=== PATIENT | female | born 1955 | race Caucasian/White ===

== ENCOUNTER 2020-08-30 11:06 | Outpatient (CLI) | payer MEDICARE, SELFPAY ==
--- NOTE | 2020-08-30 11:14 | US_ITS ---
WS: [email or web address] RENAL ULTRASOUND HISTORY: POLYCYSTIC KIDNEY DZ/CKD STAGE III (MODERATE) COMPARISON: CT 12/14/2016 TECHNIQUE: 2-D and color Doppler imaging of the kidney submitted. Right kidney: 10.3 cm x 3.2 cm x 4.7 cm. Normal echogenicity with no hydronephrosis or mass. No evidence for polycystic kidney disease. Left kidney: 10.5 cm x 5.5 cm x 5.8 cm. Normal size kidney. Exophytic cyst from the inferior pole measures 5.4 x 4.4 x 3.8 cm. No solid compo nent. There is an additional parapelvic cyst in the lower pole measuring 2.1 x 2.4 x 1.6 cm. Aorta: Normal. Urinary Bladder: Normal distention. US/US renal BI* [id number] IMPRESSION: 1. Normal RIGHT kidney. 2. 2 simple cysts lower pole LEFT kidney.
== END 2020-08-30 11:07 | disposition home or self-care (01) ==
LOC: US 11:13
PROVIDERS: PCP Nurse Practitioner Family; Visit Provider Nurse Practitioner Family
DX: Q61.3 Polycystic kidney, unspecified (principal); N18.30 Chronic kidney disease, stage 3 unspecified
CPT/HCPCS: 76770

== ENCOUNTER → 2022-01-13 14:30 | Outpatient (BNVA) | payer MEDICARE, SELFPAY | PROVIDERS: PCP Nurse Practitioner Family; Visit Provider Emergency Medicine | DX: M79.672 Pain in left foot (principal); M19.072 Primary osteoarthritis, left ankle and foot | CPT/HCPCS: 73630 ==

== ENCOUNTER → 2022-05-08 12:23 | Outpatient (BNVA) | payer MEDICARE, SELFPAY | PROVIDERS: PCP Nurse Practitioner Family; Visit Provider Emergency Medicine | DX: M25.562 Pain in left knee (principal) | CPT/HCPCS: 73030; 73562 ==

== ENCOUNTER 2025-01-15 13:29 | Emergency (ER) | payer MEDICARE, SELFPAY ==
[2025-01-15 13:32] VITALS: BP 125/68; PULSE 78; RESP 16; TEMP 36.6; O2SAT 80; BMI 19.3
--- NOTE | 2025-01-15 13:37 | ECG_ITS ---
[email or web address] Date: 2025-01-15 Pat Name: Rahel Dorsey Department: Room: Gender: Female Comb Fixer: : 1955 Requested By: Les Egan Order Number: [id number] Joe MD: Vic Recinos M.D. Measurements Intervals Carrie Rate: 81 P: 58 DE: 134 QRS: 28 QRSD: 102 T: 82 QT: 395 QTc: 460 Interpretive Statements SINUS RHYTHM POSSIBLE LEFT ATRIAL ENLARGEMENT [-0.1mV P-WAVE IN V1/V2] MINIMAL ST DEPRESSION [0.025+ mV ST DEPRESSION] Compared to ECG 11/16/2015 15:45:01 No significant changes Electronically Signed On 01-24-2025 09:26:52 CDT by Vic Recinos M.D. [id number] [id number]
--- OUTSIDE RECORDS SUMMARY | 2025-01-15 13:41 | XMS_ITS | Encounter Summary ---
Author Organization [facility] Address [address] [place] [address] Care Team Providers Care Shoveler Name Role Phone Julio Gutierrez DO Primary Care Provider [phone] Encounter Details Date Type Department Care Team (Late st Contact Info) Description 04/24/2000 Outpatient Historical [facility] [place] Gen Spec Surg [address] [address] Dallas Noble MD [address] [place] [address] Incisional hernia (Primary Dx); Follow-up examination following surgery Social History Tobacco Use Types Packs/Day Years Used Date Smoking Tobacco: Never Assessed Comments Unknown Sex and Gender Information Value Date Recorded Sex Assigned at Not on file Legal Sex Female 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
--- OUTSIDE RECORDS SUMMARY | 2025-01-15 13:41 | XMS_ITS | Encounter Summary ---
Author Organization [facility] Address [address] [place] [address] Care Team Providers Care Tire Setter Name Role Phone Julio Gutierrez DO Primary Care Provider [phone] Encounter Details Date Type Department Care Team (Latest Contact Info) Description 12/23/2003 Outpatient Historical [facility] Orthopedics- 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
--- OUTSIDE RECORDS SUMMARY | 2025-01-15 13:41 | XMS_ITS | Encounter Summary ---
Author Organization [facility] Address [address] [facility] Attn: [place] [address] Care Team Providers Care Professional Bondsman Name Role Phone Julio Gutierrez Primary Care Provider [phone] Encounter Details Date Type Department Care Team (Late st Contact Info) Description 07/01/2007 Outpatient Historical [place], Juan Browning MD [address] [place], [place] [address] Social History Tobacco Use Types Packs/Day Years Used Date Smoking Tobacco: Never Assessed Comments Unknown Sex and Gender Information Value Date Recorded Sex Assigned at Not on file Legal Sex Female 3:22 AM FRONT DESK ASSISTANT Gender Identity Not on file Sexual Orientation Not on file documented as of this encounter Plan of Treatment Not on file documented as of this encounter Procedures Procedure Name Priority Date/Time Associated Diagnosis Comments HIV DETECTION W/REFLX CONFIRMATION Routine 06/28/2007 7:05 AM FRONT DESK ASSISTANT HEPATITIS B SURFACE ANTIGEN Routine 06/28/2007 7:05 AM FRONT DESK ASSISTANT HEPATITIS C ANTIBODY Routine 06/28/2007 7:05 AM FRONT DESK ASSISTANT documented in this encounter Results * HEPATITIS B SURFACE ANTIGEN (06/28/2007 7:05 AM FRONT DESK ASSISTANT) HEPATITIS B SURFACE AG Negative Negative INTERFACE SYSTEM 06/28/2007 7:05 AM FRONT DESK ASSISTANT Result [facility] Juan Valentino MD CHEMISTRY ORDERABLES Edited Performing Organization Address [facility] Phone Number INTERFACE SYSTEM Refer to clinic/hospital department * (ABNORMAL) HEPATITIS C ANTIBODY (06/28/2007 7:05 AM FRONT DESK ASSISTANT) HEPATITIS C AB High Positive( A) Negative INTERFACE SYSTEM Comment: HCV antibody testing is performed by E.I.A. methodology. CDC recommends positive HCV antibody tests have confirmation testing. Low positive results should be confirmed with RIBA. This will determine if results are false positive. If a high positive result is obtained an HCV RNA may be run. The RNA test confirms infection and the level of the RNA, to some extent, helps guide treatment. The same specimen can be used for RIBA and will be held for 7 days. Please contact the Immunology lab if RIBA testing is desired. However, if HCV RNA testing is desired, a new specimen must be collected. Blood should be collected in SST (serum) or EDTA (plasma) separation tubes. Separate serum or plasma from whole blood within 6 hours of collection. Serum or plasma can be transported at refrigerated temperature or frozen and transported. 06/28/2007 7:05 AM FRONT DESK ASSISTANT Result [facility] Juan Valentino MD CHEMISTRY ORDERABLES Edited Performing Organization Address [facility] Phone Number INTERFACE SYSTEM Refer to clinic/hospital department * HIV ANTIBODY W/REFLX CONFIRMATION (06/28/2007 7:05 AM FRONT DESK ASSISTANT) HIV-1 AND 2 ABS Negative Negative INTE RFACE SYSTEM Comment: Interpretation for HIV Results: Negative result: Negative for antibodies to HIV-1 and HIV-2 by EIA. Reactive result: Repeatedly Reactive for antibodies to HIV-1 and/or HIV-2 by EIA. Due to possible non-specific reactions from other causes, this specimen has been sent for confirmation by Western Blot. 06/28/2007 7:05 AM FRONT DESK ASSISTANT Result [facility] Juan Valentino MD CHEMISTRY ORDERABLES Edited INTERFACE SYSTEM Refer to clinic/hospital department documented in this encounter Visit Diagnoses Not on filedocumented in this encounter Care Teams Professional Bondsman Relationship Specialty Start Date End Date Julio Gutierrez DO [address] [place] [address] PCP - General Whipped Topping Finisher 02/09/11 documented as of this encounter
--- OUTSIDE RECORDS SUMMARY | 2025-01-15 13:41 | XMS_ITS | Encounter Summary ---
Author Organization [facility] Address [address] [place] [address] Care Team Providers Care Convex Grinder Name Role Phone Julio Gutierrez DO Primary Care Provider [phone] Encounter Details Date Type Department Care Team (Latest Contact Info) Description 08/27/2003 Outpatient Historical [facility] Cardiology- [place] [address] [place] [address] Marianna Rios, METAL BALER NO ADDRESS ON FILE ANGINA PECTORIS NEC/NOS (Primary Dx); CORON ATHEROSCL [place] CORON VESSEL; Pure hypercholesterolem Social History Tobacco Use Types Packs/Day Years Used Date Smoking Tobacco: Never Assessed Comments Unknown Sex and Gender Information Value Date Recorded Sex Assigned at Not on file Legal Sex Female 3:22 AM 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
--- OUTSIDE RECORDS SUMMARY | 2025-01-15 13:41 | XMS_ITS | Encounter Summary ---
Author Organization [facility] Address [address] [place] [address] Care Team Providers Care Electronics Engineer Name Role Phone Matthew Barr MD Primary Care Provider Reason for Referral * Radiology Services (Routine) - Authorized Specialty Diagnoses / Procedures Referred By Contac t Referred To Contact Diagnoses Bilateral carotid artery stenosis Procedures US CAROTID DOPPLER Baldomero Mckinney NP [address] [address] Phone: tel: fax: Referral ID Status Reason Start Date Expiration Date V isits Requested Visits Authorized [id number] Authorized 01/12/2025 02/12/2026 1 1 Encounter Details Date Type Department Care Team (Late st Contact Info) Description 01/12/2025 Orders Only [facility] Vascular Surgery [place] [address] [place] [address] Baldomero Mckinney NP [address] [place] [address] Bilateral carotid artery stenosis (Primary Dx) Social History Tobacco Use Types Packs/Day Years Used Date Smoking Tobacco: Every Day Cigarettes 1.5 49 Smokeless Tobacco: Never Alcohol Use Standard Drinks/Week Comments No 0 (1 standard drink = 0.6 oz pur e alcohol) Comments Unknown Sex and Gender Information Value Date Recorded Sex Assigned at Not on file Legal Sex Female 3:57 PM CLASS B TRUCK DRIVER Gender Identity Not on file Sexual Orientation Not on file documented as of this encounter Plan of Treatment Upcoming Encounters Date Type Department Care Team (Late st Contact Info) Description 03/04/2025 12:00 PM CDT Ancillary Procedure [facility] V[facility]- [place] [address] [place] [address] Baldomero Mckinney NP [address] [place] [address] 03/04/2025 1:00 PM CDT Office Visit [facility] Vascular Surgery [address] [place] [address] Baldomero Mckinney NP [address] [place] [address] Scheduled Orders Name Type Priority Associated Diagnoses Orde r Schedule US CAROTID DOPPLER Imaging Routine Bilateral carotid artery stenosis Expected: 01/19/2025 (Approximate), Expires: 03/14/2026 documented as of this encounter Visit Diagnoses Diagnosis Bilateral carotid artery stenosis- Primary Occlusion and stenosis of multiple and bilateral precerebral arteries without mention of cerebral infarction documented in this encounter Care Teams Electronics Engineer Relationship Specialty Start Date End Date Matthew Barr MD [address] [place] [phone] PCP - General Family Practice 10/19/21 documented as of this encounter
--- OUTSIDE RECORDS SUMMARY | 2025-01-15 13:41 | XMS_ITS | Encounter Summary ---
Author Organization [facility] Address [address] [place] [address] Care Team Providers Care Onion Topper Name Role Phone Julio Gutierrez DO Primary Care Provider [phone] Encounter Details Date Type Department Care Team (Late st Contact Info) Description 09/07/2005 Emergency [facility] Emergency Department [address] [place] [phone] Dallas Fuller MD NO ADDRESS ON FILE Pain in Soft Tissues of Limb (Primary Dx) Social History Tobacco Use Types Packs/Day Years Used Date Smoking Tobacco: Never Assessed Comments Unknown Sex and Gender Information Value Date Recorded Sex Assigned at Not on file Legal Sex Female 3:22 AM FAST FOOD SHIFT 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
--- OUTSIDE RECORDS SUMMARY | 2025-01-15 13:41 | XMS_ITS | Encounter Summary ---
Author Organization [facility] Address [address] [place] [address] Care Team Providers Care Tool Honing Machine Set Up Operator Name Role Phone Julio Gutierrez Primary Care Provider Encounter Details Date Type Department Care Team (Late st Contact Info) Description 12/15/2016 Lab Requisition [facility] Laboratory Services [address] [place] [phone] Hans Castanon MD NO ADDRESS ON FILE Social History Tobacco Use Types Packs/Day Years Used Date Smoking Tobacco: Every Day Cigarettes 1 25 Alcohol Use Standard Drinks/Week Comments No 0 (1 standard drink = 0.6 oz pur e alcohol) Comments No Sex and Gender Information Value Date Recorded Sex Assigned at Not on file Legal Sex Female 3:22 AM LEAD SOFTWARE DEVELOPER Gender Identity Not on file Sexual Orientation Not on file documented as of this encounter Plan of Treatment Not on file documented as of this encounter Procedures Procedure Name Priority Date/Time Associated Diagnosis Comments HIV DETECTION W/REFLX CONFIRMATION Routine 12/15/2016 1:51 AM CDT HEPATITIS C RNA PCR, QUANTITATIVE Routine 12/15/2016 1:51 AM CDT HEPATITIS B SURFACE ANTIGEN Routine 12/15/2016 1:51 AM CDT HEPATITIS C ANTIBODY Routine 12/15/2016 1:51 AM CDT documented in this encounter Results * HEPATITIS C RNA PCR, QUANTITATIVE (12/15/2016 1:51 AM CDT) [facility] HEPATITIS C RNA PCR NOT DETECTED Not detected 12/18/2016 12:42 PM CDT [facility] Blood Collection / Unknown 12/15/2016 1:51 AM CDT 12/15/2016 2:46 AM CDT Narrative [facility] - 12/18/2016 12:42 PM CDT The quantification range of this assay is 15 to 100,000,000 IU/mL (1.18 to 8.00 log IU/mL). Testing was performed by the Kaitlynn Marquise [employer]/Marquise Taqman HCV Test, v. 2.0 using Reverse Egg Separator - Polymerase Chain Reaction (RT-PCR). Hans Castanon MD CHEMISTRY ORDERABLES Final Res ult Performing Organization Address [facility] Co de Phone Number [facility] CLIA# [id number] [address] [place] [address] * HEPATITIS B SURFACE ANTIGEN (12/15/2016 1:51 AM CDT) [facility] HEPATITIS B SURFACE AG NON-REACTI VE Non-react ezequiel 12/15/2016 4:10 AM CDT [facility] Blood Collection / Unknown 12/15/2016 1:51 AM CDT 12/15/2016 2:46 AM CDT Hans Castanon MD CHEMISTRY ORDERABLES Final Res ult Performing Organization Address [facility] Co de Phone Number [facility] CLIA# [id number] [address] [place] [address] * (ABNORMAL) HEPATITIS C ANTIBODY (12/15/2016 1:51 AM CDT) [facility] HEPATITIS C AB REACTIVE( A) Non-react ezequiel 12/15/2016 4:10 AM CDT [facility] Comment:Reactive and equivoc al results will have confirmatory testing performed by HCV-RNA by PCR Blood Collection / Unknown 12/15/2016 1:51 AM CDT 12/15/2016 2:46 AM CDT Hans Castanon MD CHEMISTRY ORDERABLES Final Res ult Performing Organization Address City/[facility]/ZIP Co de Phone Number [facility] CLIA# [id number] [address] [place] [address] * HIV DETECTION W/REFLX CONFIRMATION (12/15/2016 1:51 AM CDT) HIV-1 AND 2 ABS AND HIV-1 AG Non-reacti ve Non-React ezequiel 12/15/2016 4:10 AM CDT [facility] Blood Collection / Unknown 12/15/2016 1:51 AM CDT 12/15/2016 2:46 AM CDT Hans Castanon MD CHEMISTRY ORDERABLES Final Res ult Performing Organization Address [facility] Co de Phone Number [facility] CLIA# [id number] [address] [place] [address] documented in this encounter Visit Diagnoses Not on filedocumented in this encounter Care Teams Tool Honing Machine Set Up Operator Relationship Specialty Start Date End Date Julio Gutierrez DO [address] [place] [address] PCP - General Supervisor Personnel Clerks 02/09/11 documented as of this encounter
--- OUTSIDE RECORDS SUMMARY | 2025-01-15 13:41 | XMS_ITS | Encounter Summary ---
Author Organization [facility] Address [address] [place] [address] Care Team Providers Care Manager Pediatric Name Role Phone Julio Gutierrez DO Primary Care Provider [phone] Encounter Details Date Type Department Care Team (Latest Contact Info) Description 12/14/2005 Outpatient Historical [facility] Cardiology- [place] [address] [place] [phone] Marianna Rios, CLIENT TECHNICAL SPECIALIST NO ADDRESS ON FILE Cor Athrscl-Uns Vessel (Primary Dx); Benign Hypertension; Pure Hypercholesterolem Social History Tobacco Use Types Packs/Day Years Used Date Smoking Tobacco: Never Assessed Comments Unknown Sex and Gender Information Value Date Recorded Sex Assigned at Not on file Legal Sex Female 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 Gender Identity Not on file Sexual Orientation Not on file documented as of this encounter Plan of Treatment Not on file documented as of this encounter Visit Diagnoses Diagnosis Coronary atherosclerosis of unspecified type of vessel, [place] or graft- Primary Benign hypertension Essential hypertension, benign Pure hypercholesterolem Pure hypercholesterolemia documented in this encounter Care Teams Manager Pediatric Relationship Specialty Start Date End Date Julio Gutierrez DO [address] [place] [address] PCP - General Compensation And Benefits Advisor 02/09/11 documented as of this encounter
--- OUTSIDE RECORDS SUMMARY | 2025-01-15 13:41 | XMS_ITS | Encounter Summary ---
Author Organization [facility] Address [address] [place] [address] Care Team Providers Care Team Assembly Line Machine Operator Name Role Phone Julio Gutierrez DO Primary Care Provider [phone] Encounter Details Date Type Department Care Team (Late st Contact Info) Description 08/01/2007 Outpatient Historical [facility] Cardiac Thoracic Vascular Surg [place] [address] [place] [address] Juan Cox MD NO ADDRESS ON FILE Social History Tobacco Use Types Packs/Day Years Used Date Smoking Tobacco: Never Assessed Comments Unknown Sex and Gender Information Value Date Recorded Sex Assigned at Not on file Legal Sex Female 3: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 Cardiology [address] [place] [address] RE: Rahel Dorsey : [address] Lorenz: We had the pleasure of seeing Ms. Rahel Dorsey following her five vessel coronary artery bypasssurgery on 06/24/07. We used reverse saphenous vein graft to the right coronary artery, reverse saphenous vein graft to the diagonal, reverse saphenous vein graft to the circumflex x2, left internal mammary to the left anterior descending. The patient tolerated the procedure well and was subsequently discharged in satisfactory condition. She presented to our office today with the following findings: Blood pressure 132/80, pulse 72 and regular, respirations were 16. Her breath sounds were clear bilaterally in all holly. Wounds are healing well. She has one small area on the lower aspect of her sternal wound that has a little scab on it. However, it is doing fine. She just keeps it covered due to rubbing of her brassiere on the wound. She does complain about her leg wound being sensitive and feels burning on a number of occasions and she does complain of being quite tired often. She is continuing to smoke. We had a long conversation about that. I did give her permission to resume driving and to increase her level of activityover the next six weeks towards normal. She does complain about quite a bit of stress in her life with her children and grandchildren. She is continuing to take aspirin 325 mg daily, metoprolol 25 mg b.i.d., enalapril 20 mg daily, Lexapro 10 mg daily and Lipitor 10 mg daily. We would like to thank you for allowing us to share in the care of this very kind lady. If we can be of any further assistance, please do not hesitate to call. She has an appointment to see you in approximately 3 weeks. Sincerely, Derek Silveira. For Juan Cox M.D. Cardiovascular & Thoracic Surgery Electronically Signed by Shannen Silveira 08/08/2007 09:36 , A, 570 Document #: [id number] cc: Y HUSBANDRY TEACHER Y HUSBANDRY TEACHER documented in this encounter Plan of Treatment Not on file documented as of this encounter Visit Diagnoses Not on filedocumented in this encounter Care Teams Team Assembly Line Machine Operator Relationship Specialty Start Date End Date Julio Gutierrez DO [address] [place] [address] PCP - General Senior Technical Support Engineer 02/09/11 documented as of this encounter
--- OUTSIDE RECORDS SUMMARY | 2025-01-15 13:41 | XMS_ITS | Encounter Summary ---
Author Organization [facility] Address [address] [place] [address] Care Team Providers Care Nutrition Instructor Name Role Phone Julio Gutierrez DO Primary Care Provider [phone] Encounter Details Date Type Department Care Team (Latest Contact Info) Description 10/30/2003 Outpatient Historical [facility] Ambulance [address] [place] [address] AMBULANCE, [facility] LOWER LEG INJURY NOS (Primary Dx) Social History Tobacco Use Types Packs/Day Years Used Date Smoking Tobacco: Never Assessed Comments Unknown Sex and Gender Information Value Date Recorded Sex Assigned at Not on file Legal Sex Female 3:22 AM HEAT ENGINEERING TEACHER Gender Identity Not on file Sexual Orientation Not on file documented as of this encounter Plan of Treatment Not on file documented as of this encounter Visit Diagnoses Diagnosis Injury, other and unspecified, knee, leg, ankle, and foot- Primary documented in this encounter Care Teams Nutrition Instructor Relationship Specialty Start Date End Date Julio Gutierrez DO [address] [place] [address] PCP - General Music Industry Intern 02/09/11 documented as of this encounter
--- OUTSIDE RECORDS SUMMARY | 2025-01-15 13:41 | XMS_ITS | Encounter Summary ---
Author Organization [facility] Address [address] [place] [address] Care Team Providers Care Steward/Stewardess Lounge Name Role Phone Julio Gutierrez Primary Care Provider [phone] Encounter Details Date Type Department Care Team (Latest Contact Info) Description 09/26/2004 Outpatient Historical [facility] Cardiac Historiography Teacher [address] [place] [phone] Renard Lorenz MD NO ADDRESS ON FILE CORON ATHEROSCL [place] CORON VESSEL (Primary Dx) Social History Tobacco Use Types Packs/Day Years Used Date Smoking Tobacco: Never Assessed Comments Unknown Sex and Gender Information Value Date Recorded Sex Assigned at Not on file Legal Sex Female 3:22 AM HISTOLOGY TECHNOLOGIST Gender Identity Not on file Sexual Orientation Not on file documented as of this encounter Plan of Treatment Not on file documented as of this encounter Procedures Procedure Name Priority Date/Time Associated Diagnosis Comments PT AND APTT Routine 09/26/2004 7:12 AM CDT CBC WITHOUT DIFFERENTIAL Routine 09/26/2004 7:12 AM CDT C-REACTIVE PROTEIN Routine 09/26/2004 7: 12 AM CDT BASIC METABOLIC PANEL Routine 09/26/2004 7:12 AM CDT documented in this encounter Results * PT AND APTT (09/26/2004 7:12 AM CDT) PROTIME 14.2 12.4 - 14.9 Secs INTERFACE SYSTEM Comment: As of 03 note change in normal range. INR 1.0 INTERFACE SYSTEM Comment: Expected Values for INR: DVT/PE Goal INR 2.5; range 2.0 - 3.0 Valve Replacement Tissue Goal INR 2.5; range 2.0 - 3.0 Mechanical Goal INR 3.0; range 2.5 - 3.5 POST-OR Goal INR 2.5; range 2.0 - 3.0 or Goal 3.0; range 2.5 - 3.5 Atrial Fibrillation Goal INR 2.5; range 2.0 - 3.0 Ischemic Stroke Goal INR 2.5; range 2.0 - 3.0 For additional information see Guidelines for Anticoagulation available from the pharmacy [facility] [place] PTT 33.2 24.3 - 37.5 Secs INTERFACE SYSTEM Comment:Therapeutic Range: 09/26/2004 7:12 AM CDT us Renard Lorenz MD HEMATOLOGY ORDERABLES Final Result INTERFACE SYSTEM Refer to clinic/hospital department * (ABNORMAL) CBC WITHOUT DIFFERENTIAL (09/26/2004 7:12 AM CDT) WBC 7.5 4.5 - 11.0 K/ul INTERFACE SYSTEM RBC 4.62 4.20 - 5.40 Mil/ul INTERFACE SYSTEM HEMOGLOBIN 14.8 12.0 - 16.0 g/dL INTERFACE SYSTEM HEMATOCRIT 44.6 36.0 - 46.0 % INTERFACE SYSTEM MCV 96.5 84.0 - 103.0 Fl INTERFACE SYSTEM MCH 32.0 27.0 - 34.0 pg INTERFACE SYSTEM MCHC 33.2 30.0 - 35.0 g/dL INTERFACE SYSTEM RDW 13.0 11.0 - 14.5 percent(in active) INTERFACE SYSTEM PLATELETS 486(H) 140 - 440 K/ul INTERFACE SYSTEM MPV 9.2 8.9 - 12.8 Fl INTERFACE SYSTEM NEUTROPHILS 55.5 42.2 - 75.2 percent(in active) INTERFACE SYSTEM LYMPHOCYTES 34.5 24.0 - 44.0 percent(in active) INTERFACE SYSTEM MONOCYTES 8.0 2.0 - 10.0 percent(in active) INTERFACE SYSTEM EOSINOPHILS 1.7 0.0 - 7.0 % INTERFACE SYSTEM BASOPHILS 0.3 0.0 - 1.0 percent(in active) INTERFACE SYSTEM NEUTROPHIL ABSOLUTE 4.1 2.0 - 8.0 K/uL INTERFACE SYSTEM LYMPHOCYTE ABSOLUTE 2.6 1.2 - 4.0 K/ul INTERFACE SYSTEM MONOCYTE ABSOLUTE 0.6 0.1 - 0.6 K/ul INTERFACE SYSTEM EOSINOPHIL ABSOLUTE 0.1 0.0 - 0.7 K/ul INTERFACE SYSTEM BASOPHILS ABSOLUTE 0.0 0.0 - 0.2 K/ul INTERFACE SYSTEM 09/26/2004 7:12 AM CDT Renard Lorenz MD HEMATOLOGY ORDERABLES Final Result Performing Organization Address [facility] de Phone Number INTERFACE SYSTEM Refer to clinic/hospital department * (ABNORMAL) C-REACTIVE PROTEIN (09/26/2004 7:12 AM CDT) CRP 1.9(H) 0.0 - 1.0 mg/dL INTERFACE SYSTEM Comment: This is a standard CRP method, and is not intended as a marker for Heart Disease This test cannot be used to assess cardiac risk. As of 01/25/2004, the linearity on CRP has been changed to 0.3-11.0 mg/dl. The past range was 0.7-11.0 mg/dl. 09/26/2004 7:12 AM CDT Renard Lorenz MD CHEMISTRY ORDERABLES Final Result Performing Organization Address [facility] Co de Phone Number INTERFACE SYSTEM Refer to clinic/hospital department * (ABNORMAL) BASIC METABOLIC PANEL (09/26/2004 7:12 AM CDT) GLUCOSE 115(H) 70 - 110 mg/dL INTERFACE SYSTEM BUN 8 7 - 17 mg/dL INTERFACE SYSTEM CREATININE 1.0 0.7 - 1.2 mg/dL INTERFACE SYSTEM SODIUM 140 136 - 145 mEq/L INTERFACE SYSTEM POTASSIUM 4.1 3.5 - 5.0 mEq/L INTERFACE SYSTEM CHLORIDE 103 95 - 110 mEq/L INTERFACE SYSTEM CO2 28 22 - 32 mmol/l INTERFACE SYSTEM ANION GAP 13 9 - 20 mEq/L INTERFACE SYSTEM OSMOLALITY, CALCULATED 287 275 - 295 mOsm/Kg INTERFACE SYSTEM CALCIUM 9.1 8.4 - 10.5 mg/dL INTERFACE SYSTEM 09/26/2004 7:12 AM CDT us Renard Lorenz MD CHEMISTRY ORDERABLES Final Result INTERFACE SYSTEM Refer to clinic/hospital department documented in this encounter Visit Diagnoses Diagnosis Coronary atherosclerosis of [place] coronary artery- Primary documented in this encounter Care Teams Steward/Stewardess Lounge Relationship Specialty Start Date End Date Julio Gutierrez DO [address] [place] [address] PCP - General Hydrogeology Professor 02/09/11 documented as of this encounter
--- OUTSIDE RECORDS SUMMARY | 2025-01-15 13:41 | XMS_ITS | Encounter Summary ---
Author Organization [facility] Address [address] [place] [address] Care Team Providers Care Air Traffic Control Equipment Repairer Name Role Phone Julio Gutierrez DO Primary Care Provider [phone] Encounter Details Date Type Department Care Team (Latest Contact Info) Description 12/03/2002 Outpatient Historical [facility] Dom Shah, MARÍA NO ADDRESS ON FILE Hallux valgus (Primary Dx); AFCARE FOL SURG OF MUSCULOSK SYS, NEC Social History Tobacco Use Types Packs/Day Years Used Date Smoking Tobacco: Never Assessed Comments Unknown Sex and Gender Information Value Date Recorded Sex Assigned at Not on file Legal Sex Female 3:22 AM TRENCH DIGGER Gender Identity Not on file Sexual Orientation Not on file documented as of this encounter Plan of Treatment Not on file documented as of this encounter Visit Diagnoses Diagnosis Hallux valgus- Primary Hallux valgus (acquired) Aftercare following surgery of the musculoskeletal system, NEC documented in this encounter Care Teams Air Traffic Control Equipment Repairer Relationship Specialty Start Date End Date Julio Gutierrez DO [address] [place] [address] PCP - General It Program Engagement Director 02/09/11 documented as of this encounter
--- OUTSIDE RECORDS SUMMARY | 2025-01-15 13:41 | XMS_ITS | Encounter Summary ---
Author Organization [facility] Address [address] [place] [address] Care Team Providers Care Music Pastor Name Role Phone Julio Gutierrez DO Primary Care Provider [phone] Encounter Details Date Type Department Care Team (Latest Contact Info) Description 11/28/2002 Outpatient Historical [facility] Dom Shah, MARÍA NO ADDRESS ON FILE Hallux valgus (Primary Dx); AFCARE FOL SURG OF MUSCULOSK SYS, NEC Social History Tobacco Use Types Packs/Day Years Used Date Smoking Tobacco: Never Assessed Comments Unknown Sex and Gender Information Value Date Recorded Sex Assigned at Not on file Legal Sex Female 3:22 AM CRIMINAL PROFILER Gender Identity Not on file Sexual Orientation Not on file documented as of this encounter Plan of Treatment Not on file documented as of this encounter Visit Diagnoses Diagnosis Hallux valgus- Primary Hallux valgus (acquired) Aftercare following surgery of the musculoskeletal system, NEC documented in this encounter Care Teams Music Pastor Relationship Specialty Start Date End Date Julio Gutierrez DO [address] [place] [address] PCP - General Director Of Transportation 02/09/11 documented as of this encounter
--- OUTSIDE RECORDS SUMMARY | 2025-01-15 13:41 | XMS_ITS | Encounter Summary ---
Author Organization [facility] Address [address] [place] [address] Care Team Providers Care Services Mgr Name Role Phone Julio Gutierrez DO Primary Care Provider [phone] Encounter Details Date Type Department Care Team (Latest Contact Info) Description 02/14/2007 Outpatient Historical [facility] Cardiology- [place] [address] [place] [phone] [place] Rios, CDL DEDICATED TRUCK DRIVER NO ADDRESS ON FILE Cor Athrscl-Uns Vessel (Primary Dx); Benign Hypertension; Pure Hypercholesterolem Social History Tobacco Use Types Packs/Day Years Used Date Smoking Tobacco: Never Assessed Comments Unknown Sex and Gender Information Value Date Recorded Sex Assigned at Not on file Legal Sex Female 3:22 AM ACCOUNTING MANAGER ASSISTANT CONTROLLER Gender Identity Not on file Sexual Orientation Not on file documented as of this encounter Plan of Treatment Not on file documented as of this encounter Visit Diagnoses Diagnosis Coronary atherosclerosis of unspecified type of vessel, burns paiute or graft- Primary Benign hypertension Essential hypertension, benign Pure hypercholesterolem Pure hypercholesterolemia documented in this encounter Care Teams Services Mgr Relationship Specialty Start Date End Date Julio Gutierrez DO [address] [place] [address] PCP - General Hot Blaster 02/09/11 documented as of this encounter
--- OUTSIDE RECORDS SUMMARY | 2025-01-15 13:41 | XMS_ITS | Encounter Summary ---
Author Organization [facility] Address [address] [place] [address] Care Team Providers Care Wide Area Network Systems Administrator Name Role Phone Julio Gutierrez DO Primary Care Provider [phone] Encounter Details Date Type Department Care Team (Latest Contact Info) Description 10/30/2003 Inpatient Historical [facility] Emergency Department [address] [place] [phone] Kian Marie MD [address] [place] [address] FX BIMALLEOLAR-CLOSED (Primary Dx) Social History Tobacco Use Types Packs/Day Years Used Date Smoking Tobacco: Never Assessed Comments Unknown Sex and Gender Information Value Date Recorded Sex Assigned at Not on file Legal Sex Female 3:22 AM FELT HAT INSPECTOR AND PACKER Gender Identity Not on file Sexual Orientation Not on file documented as of this encounter Plan of Treatment Not on file documented as of this encounter Visit Diagnoses Diagnosis Closed bimalleolar fracture- Primary documented in this encounter Care Teams Wide Area Network Systems Administrator Relationship Specialty Start Date End Date Julio Gutierrez DO [address] [place] [address] PCP - General Food And Nutrition Services Supervisor 02/09/11 documented as of this encounter
--- OUTSIDE RECORDS SUMMARY | 2025-01-15 13:41 | XMS_ITS | Encounter Summary ---
Author Organization [facility] Address [address] [place] [address] Care Team Providers Care Chief Radiology Name Role Phone Julio Gutierrez DO Primary Care Provider [phone] Encounter Details Date Type Department Care Team (Late st Contact Info) Description 05/01/2000 Outpatient Historical [facility] Gen Spec Surg [address] [address] Dallas Noble MD [address] [place] [phone] Incisional hernia (Primary Dx); Follow-up examination following surgery Social History Tobacco Use Types Packs/Day Years Used Date Smoking Tobacco: Never Assessed Comments Unknown Sex and Gender Information Value Date Recorded Sex Assigned at Not on file Legal Sex Female 3:22 AM RECTIFIER OPERATOR Gender Identity Not on file Sexual Orientation Not on file documented as of this encounter Plan of Treatment Not on file documented as of this encounter Visit Diagnoses Diagnosis Incisional hernia- Primary Incisional hernia without mention of obstruction or gangrene Follow-up examination following surgery documented in this encounter Care Teams Chief Radiology Relationship Specialty Start Date End Date Julio Gutierrez DO [address] [place] [address] PCP - General Dirt Shoveler 02/09/11 documented as of this encounter
--- OUTSIDE RECORDS SUMMARY | 2025-01-15 13:41 | XMS_ITS | Encounter Summary ---
Author Organization [facility] Address [address] [place] [address] Care Team Providers Care Librarian School Name Role Phone Julio Gutierrez DO Primary Care Provider [phone] Encounter Details Date Type Department Care Team (Latest Contact Info) Description 01/09/2003 Outpatient Historical [facility] Dom Shah DPM NO ADDRESS ON FILE Hallux valgus (Primary Dx); ACQ ANKLE-FOOT DEF NEC Social History Tobacco Use Types Packs/Day Years Used Date Smoking Tobacco: Never Assessed Comments Unknown Sex and Gender Information Value Date Recorded Sex Assigned at Not on file Legal Sex Female 3:22 AM LEAD PRESSMAN Gender Identity Not on file Sexual Orientation Not on file documented as of this encounter Plan of Treatment Not on file documented as of this encounter Visit Diagnoses Diagnosis Hallux valgus- Primary Hallux valgus (acquired) Other acquired deformity of ankle and foot(736.79) Other acquired deformity of ankle and foot documented in this encounter Care Teams Librarian School Relationship Specialty Start Date End Date Julio Gutierrez DO [address] [place] [address] PCP - General Production Engineer Track 02/09/11 documented as of this encounter
--- OUTSIDE RECORDS SUMMARY | 2025-01-15 13:41 | XMS_ITS | Encounter Summary ---
Author Organization [facility] Address [address] Cervantes: Epic [place] [address] Care Team Providers Care Abstractor Name Role Phone Julio Gutierrez DO Primary Care Provider [phone] Encounter Details Date Type Department Care Team (Late st Contact Info) Description 03/17/2002 Outpatient Historical [facility], [facility] [address] [address] Social History Tobacco Use Types Packs/Day Years Used Date Smoking Tobacco: Never Assessed Comments Unknown Sex and Gender Information Value Date Recorded Sex Assigned at Not on file Legal Sex Female 3:22 AM ROLLER TURNER Gender Identity Not on file Sexual Orientation Not on file documented as of this encounter Plan of Treatment Not on file documented as of this encounter Visit Diagnoses Not on filedocumented in this encounter Care Teams Abstractor Relationship Specialty Start Date End Date Julio Gutierrez DO [address] [place] [address] PCP - General [address] In Teller 02/09/11 documented as of this encounter
--- OUTSIDE RECORDS SUMMARY | 2025-01-15 13:41 | XMS_ITS | Encounter Summary ---
Author Organization [facility] Address [address] [place] [address] Care Team Providers Care Development Team Lead Name Role Phone Julio Gutierrez DO Primary Care Provider Encounter Details Date Type Department Care Team (Latest Contact Info) Description 12/29/2002 Inpatient Historical [facility] Cardiac Belt Loop Maker [address] [place] [phone] Renard Lorenz MD NO ADDRESS ON FILE CORON ATHEROSCL [place] CORON VESSEL (Primary Dx) Social History Tobacco Use Types Packs/Day Years Used Date Smoking Tobacco: Never Assessed Comments Unknown Sex and Gender Information Value Date Recorded Sex Assigned at Not on file Legal Sex Female 3:22 AM MANAGER OF TIRES SALES Gender Identity Not on file Sexual Orientation Not on file documented as of this encounter Plan of Treatment Not on file documented as of this encounter Visit Diagnoses Diagnosis Coronary atherosclerosis of [place] coronary artery- Primary documented in this encounter Care Teams Development Team Lead Relationship Specialty Start Date End Date Julio Gutierrez DO [address] [place] [address] PCP - General Molding Cutter 02/09/11 documented as of this encounter
--- OUTSIDE RECORDS SUMMARY | 2025-01-15 13:41 | XMS_ITS | Encounter Summary ---
Author Organization [facility] Address [address] [place] [address] Care Team Providers Care Ager Tender Name Role Phone Julio Gutierrez DO Primary Care Provider [phone] Encounter Details Date Type Department Care Team (Late st Contact Info) Description 04/01/2002 Outpatient Historical [facility] Khari Franz MD [address] [place] [address] PNEUMONIA, ORGANISM NOS (Primary Dx); CHRONIC AIRWAY OBSTRUCTION NEC (CMS/HCC); RESPIRATORY ABNORM NEC Social History Tobacco Use Types Packs/Day Years Used Date Smoking Tobacco: Never Assessed Comments Unknown Sex and Gender Information Value Date Recorded Sex Assigned at Not on file Legal Sex Female 3:22 AM PACU RN Gender Identity Not on file Sexual Orientation Not on file documented as of this encounter Plan of Treatment Not on file documented as of this encounter Visit Diagnoses Diagnosis Pneumonia, organism unspecified(486)- Primary Pneumonia, organism unspecified Chronic airway obstruction, not elsewhere classified (CMS/HCC) Chronic airway obstruction, not elsewhere classified Other dyspnea and respiratory abnormality documented in this encounter Care Teams Ager Tender Relationship Specialty Start Date End Date Julio Gutierrez DO [address] [place] [address] PCP - General Head Host/Hostess 02/09/11 documented as of this encounter
--- OUTSIDE RECORDS SUMMARY | 2025-01-15 13:41 | XMS_ITS | Encounter Summary ---
Author Organization [facility] Address [address] [place] [address] Care Team Providers Care Room Attendant Name Role Phone Julio Gutierrez DO Primary Care Provider [phone] Encounter Details Date Type Department Care Team (Latest Contact Info) Description 02/24/2004 Outpatient Historical [facility] Orthopedics[address] [place] [address] Kian Marie MD [address] [place] [address] FX BIMALLEOLAR-CLOSED (Primary Dx) Social History Tobacco Use Types Packs/Day Years Used Date Smoking Tobacco: Never Assessed Comments Unknown Sex and Gender Information Value Date Recorded Sex Assigned at Not on file Legal Sex Female 3:22 AM HEAD RIGGER Gender Identity Not on file Sexual Orientation Not on file documented as of this encounter Plan of Treatment Not on file documented as of this encounter Visit Diagnoses Diagnosis Closed bimalleolar fracture- Primary documented in this encounter Care Teams Room Attendant Relationship Specialty Start Date End Date Julio Gutierrez DO [address] [place] [address] PCP - General Adhesive Sprayer 02/09/11 documented as of this encounter
--- OUTSIDE RECORDS SUMMARY | 2025-01-15 13:41 | XMS_ITS | Encounter Summary ---
Author Organization [facility] Address [address] [place] [address] Care Team Providers Care Egg Processor Name Role Phone Julio Gutierrez DO Primary Care Provider [phone] Encounter Details Date Type Department Care Team (Latest Contact Info) Description 04/09/2000 Outpatient Historical [address] [phone] Angel Clark DO NO ADDRESS ON FILE Umbilical hernia (Primary Dx) Social History Tobacco Use Types Packs/Day Years Used Date Smoking Tobacco: Never Assessed Comments Unknown Sex and Gender Information Value Date Recorded Sex Assigned at Not on file Legal Sex Female 3:22 AM INKER Gender Identity Not on file Sexual Orientation Not on file documented as of this encounter Plan of Treatment Not on file documented as of this encounter Visit Diagnoses Diagnosis Umbilical hernia- Primary Umbilical hernia without mention of obstruction or gangrene documented in this encounter Care Teams Egg Processor Relationship Specialty Start Date End Date Julio Gutierrez DO [address] [place] [address] PCP - General Patient Services Specialist 02/09/11 documented as of this encounter
--- OUTSIDE RECORDS SUMMARY | 2025-01-15 13:41 | XMS_ITS | Encounter Summary ---
Author Organization [facility] Address [address] [place] [address] Care Team Providers Care Director Biology Name Role Phone Julio Gutierrez DO Primary Care Provider [phone] Encounter Details Date Type Department Care Team (Latest Contact Info) Description 08/20/[address] [phone] Angel Clark DO NO ADDRESS ON FILE Acute upper respiratory infections of unspecified site (Primary Dx); Acute sinusitis, unspecified; Other dyspnea and respiratory abnormality; Acute pharyngitis Social History Tobacco Use Types Packs/Day Years Used Date Smoking Tobacco: Never Assessed Comments Unknown Sex and Gender Information Value Date Recorded Sex Assigned at Not on file Legal Sex Female 3:22 AM BILLET HEATER Gender Identity Not on file Sexual Orientation Not on file documented as of this encounter Plan of Treatment Not on file documented as of this encounter Visit Diagnoses Diagnosis Acute upper respiratory infections of unspecified site- Primary Acute sinusitis, unspecified Other dyspnea and respiratory abnormality Acute pharyngitis documented in this encounter Care Teams Director Biology Relationship Specialty Start Date End Date Julio Gutierrez DO [address] [place] [address] PCP - General B And B Gang Worker 02/09/11 documented as of this encounter
--- OUTSIDE RECORDS SUMMARY | 2025-01-15 13:41 | XMS_ITS | Encounter Summary ---
Author Organization [facility] Address [address] [place] [address] Care Team Providers Care Sound Effects Technician Name Role Phone Julio Gutierrez DO Primary Care Provider [phone] Encounter Details Date Type Department Care Team (Late st Contact Info) Description 08/21/2000 Outpatient Historical [facility] Blair Myriam [address] [place] [address] Social History Tobacco Use Types Packs/Day Years Used Date Smoking Tobacco: Never Assessed Comments Unknown Sex and Gender Information Value Date Recorded Sex Assigned at Not on file Legal Sex Female 3:22 AM MORTGAGE FIELD INSPECTOR Gender Identity Not on file Sexual Orientation Not on file documented as of this encounter Plan of Treatment Not on file documented as of this encounter Visit Diagnoses Not on filedocumented in this encounter Care Teams Sound Effects Technician Relationship Specialty Start Date End Date Julio Gutierrez DO [address] [place] [address] PCP - General Full Stack Web Developer 02/09/11 documented as of this encounter
--- OUTSIDE RECORDS SUMMARY | 2025-01-15 13:41 | XMS_ITS | Encounter Summary ---
Author Organization [facility] Address [address] [place] [address] Care Team Providers Care Health Program Manager Name Role Phone Julio Gutierrez DO Primary Care Provider [phone] Encounter Details Date Type Department Care Team (Late st Contact Info) Description 11/28/2002 Outpatient Historical [facility] Khari Franz MD [address] [place] [address] CHRONIC AIRWAY OBSTRUCTION NEC (CMS/HCC) (Primary Dx); RESPIRATORY ABNORM NEC Social History Tobacco Use Types Packs/Day Years Used Date Smoking Tobacco: Never Assessed Comments Unknown Sex and Gender Information Value Date Recorded Sex Assigned at Not on file Legal Sex Female 3:22 AM BICYCLE MECHANIC Gender Identity Not on file Sexual Orientation Not on file documented as of this encounter Plan of Treatment Not on file documented as of this encounter Visit Diagnoses Diagnosis Chronic airway obstruction, not elsewhere classified (CMS/HCC)- Primary Chronic airway obstruction, not elsewhere classified Other dyspnea and respiratory abnormality documented in this encounter Care Teams Health Program Manager Relationship Specialty Start Date End Date Julio Gutierrez DO [address] [place] [address] PCP - General Chemical Inspector 02/09/11 documented as of this encounter
--- OUTSIDE RECORDS SUMMARY | 2025-01-15 13:41 | XMS_ITS | Encounter Summary ---
Author Organization [facility] Address [address] [place] [address] Care Team Providers Care Financial Professional Name Role Phone Julio Gutierrez DO Primary Care Provider [phone] Encounter Details Date Type Department Care Team (Late st Contact Info) Description 12/22/2002 Outpatient Historical [facility] [address] [place] [id number] Social History Tobacco Use Types Packs/Day Years Used Date Smoking Tobacco: Never Assessed Comments Unknown Sex and Gender Information Value Date Recorded Sex Assigned at Not on file Legal Sex Female 3:22 AM [employer]ERMAL ENGINE[employer] Gender Identity Not on file Sexual Orientation Not on file documented as of this encounter Plan of Treatment Not on file documented as of this encounter Visit Diagnoses Not on filedocumented in this encounter Care Teams Financial Professional Relationship Specialty Start Date End Date Julio Gutierrez DO [address] [place] [place] [address] PCP - General [employer] Ac[employer] Consultant 02/09/11 documented as of this encounter
--- OUTSIDE RECORDS SUMMARY | 2025-01-15 13:41 | XMS_ITS | Encounter Summary ---
[facility] Address [address] [place] [address] Care Team Providers Care Operations Forester Name Role Phone MattJulio Primary Care Provider Encounter Details Date Type Department Care Team (Late st Contact Info) Description 06/24/2007 Outpatient Historical HIS IN BED Sj Ed, Physician NO ADDRESS ON FILE Jacob Lau MD NO ADDRESS ON FILE Merrick Sanchez MD NO ADDRESS ON FILE Charisse Dela Cruz, [address] [place] [address] Dejah Jacob MD NO ADDRESS ON FILE Juan Cox MD NO ADDRESS ON FILE Unspecified Chest Pain Social History Tobacco Use Types Packs/Day Years Used Date Smoking Tobacco: Never Assessed Comments Unknown Sex and Gender Information Value Date Recorded Sex Assigned at Not on file Legal Sex Female 3:22 AM SENIOR FIELD ENGINEER Gender Identity Not on file Sexual Orientation Not on file documented as of this encounter Plan of Treatment Not on file documented as of this encounter Procedures Procedure Name Priority Date/Time Associated Diagnosis Comments POC GLUCOSE Routine 06/30/2007 11:57 AM SENIOR FIELD ENGINEER POC GLUCOSE Routine 06/30/2007 8:26 AM SENIOR FIELD ENGINEER CBC WITH DIFFERENTIAL Routine 06/30/2007 5:30 AM SENIOR FIELD ENGINEER BASIC METABOLIC PANEL Routine 06/30/2007 5:30 AM SENIOR FIELD ENGINEER POC GLUCOSE Routine 06/29/2007 8:50 PM SENIOR FIELD ENGINEER POC GLUCOSE Routine 06/29/2007 5:27 PM SENIOR FIELD ENGINEER POC GLUCOSE Routine 06/29/2007 12:11 PM SENIOR FIELD ENGINEER POC GLUCOSE Routine 06/29/2007 7:46 AM SENIOR FIELD ENGINEER XR CHEST PA OR AP 1 VW Routine 8 7:43 AM SENIOR FIELD ENGINEER CBC WITH DIFFERENTIAL Routine 06/29/2007 5:00 AM SENIOR FIELD ENGINEER BASIC METABOLIC PANEL Routine 06/29/2007 5:00 AM SENIOR FIELD ENGINEER POC GLUCOSE Routine 06/28/2007 9:02 PM SENIOR FIELD ENGINEER POC GLUCOSE Routine 06/28/2007 5:37 PM SENIOR FIELD ENGINEER POC GLUCOSE Routine 06/28/2007 12:12 PM SENIOR FIELD ENGINEER POC GLUCOSE Routine 06/28/2007 6:58 AM SENIOR FIELD ENGINEER POC GLUCOSE Routine 06/28/2007 12:23 AM SENIOR FIELD ENGINEER POC GLUCOSE Routine 06/27/2007 6:10 PM SENIOR FIELD ENGINEER POC GLUCOSE Routine 06/27/2007 12:14 PM SENIOR FIELD ENGINEER POC GLUCOSE Routine 06/27/2007 7:33 AM SENIOR FIELD ENGINEER POC GLUCOSE Routine 06/27/2007 6:22 AM SENIOR FIELD ENGINEER POC GLUCOSE Routine 06/27/2007 4:19 AM SENIOR FIELD ENGINEER CBC WITH DIFFERENTIAL Routine 06/27/2007 3:24 AM SENIOR FIELD ENGINEER BASIC METABOLIC PANEL Routine 06/27/2007 3:24 AM SENIOR FIELD ENGINEER POC GLUCOSE Routine 06/27/2007 1:56 AM SENIOR FIELD ENGINEER POC GLUCOSE Routine 06/26/2007 11:54 PM SENIOR FIELD ENGINEER POC GLUCOSE Routine 06/26/2007 9:54 PM SENIOR FIELD ENGINEER POC BLOOD GAS, LYTES AND H+H Routine 06/26/2007 9:04 PM SENIOR FIELD ENGINEER POC GLUCOSE Routine 06/26/2007 8:53 PM SENIOR FIELD ENGINEER POC GLUCOSE Routine 06/26/2007 7:48 PM SENIOR FIELD ENGINEER POC BLOOD GAS, LYTES AND H+H Routine 06/26/2007 7:41 PM SENIOR FIELD ENGINEER POC GLUCOSE Routine 06/26/2007 6:52 PM SENIOR FIELD ENGINEER POC GLUCOSE Routine 06/26/2007 5:59 PM SENIOR FIELD ENGINEER CBC WITHOUT DIFFERENTIAL Routine 06/26/2007 5:07 PM SENIOR FIELD ENGINEER POC GLUCOSE Routine 06/26/2007 4:50 PM SENIOR FIELD ENGINEER POC GLUCOSE Routine 06/26/2007 3:48 PM SENIOR FIELD ENGINEER POC GLUCOSE Routine 06/26/2007 2:45 PM SENIOR FIELD ENGINEER POC BLOOD GAS, LYTES AND H+H Routine 06/26/2007 2:03 PM SENIOR FIELD ENGINEER POC GLUCOSE Routine 06/26/2007 1:57 PM SENIOR FIELD ENGINEER POC GLUCOSE Routine 06/26/2007 7:06 AM SENIOR FIELD ENGINEER PTT Routine 06/26/2007 4:46 AM SENIOR FIELD ENGINEER CBC WITHOUT DIFFERENTIAL Routine 06/26/2007 4:46 AM SENIOR FIELD ENGINEER PTT Routine 06/25/2007 4:28 AM SENIOR FIELD ENGINEER CBC WITHOUT DIFFERENTIAL Routine 06/25/2007 4:28 AM SENIOR FIELD ENGINEER PTT Routine 06/24/2007 10:00 PM SENIOR FIELD ENGINEER PTT Routine 06/24/2007 4:20 PM SENIOR FIELD ENGINEER CARDIAC ENZYMES Routine 06/24/2007 1:30 PM SENIOR FIELD ENGINEER CARDIAC ENZYMES Routine 06/24/2007 7:08 AM SENIOR FIELD ENGINEER CBC WITH DIFFERENTIAL Routine 06/24/2007 7:08 AM SENIOR FIELD ENGINEER LIPID PANEL Routine 06/24/2007 7:08 AM SENIOR FIELD ENGINEER COMPREHENSIVE METABOLIC PANEL Routine 06/24/2007 7:08 AM SENIOR FIELD ENGINEER CARDIAC ENZYMES Routine 06/24/2007 1:03 AM SENIOR FIELD ENGINEER CBC WITH DIFFERENTIAL Routine 06/24/2007 1:03 AM SENIOR FIELD ENGINEER PTT Routine 06/24/2007 1:03 AM SENIOR FIELD ENGINEER PROTIME-INR Routine 06/24/2007 1:03 AM SENIOR FIELD ENGINEER D-DIMER Routine 06/24/2007 1:03 AM SENIOR FIELD ENGINEER BASIC METABOLIC PANEL Routine 06/24/2007 1:03 AM SENIOR FIELD ENGINEER documented in this encounter Results * POC GLUCOSE (06/30/2007 11:57 AM SENIOR FIELD ENGINEER) GLUCOSE POC 99 60 - 100 mg/dL INTERFACE SYSTEM 06/30/2007 11:5 7 AM SENIOR FIELD ENGINEER Juan Cox MD POINT OF CARE TESTING Edited INTERFACE SYSTEM Refer to clinic/hospital department * (ABNORMAL) POC GLUCOSE (06/30/2007 8:26 AM SENIOR FIELD ENGINEER) GLUCOSE POC 180(H) 60 - 100 mg/dL INTERFACE SYSTEM 06/30/2007 8:26 AM SENIOR FIELD ENGINEER us Juan Cox MD POINT OF CARE TESTING Edited Performing Organization Address City/[facility]/ZIP Co de Phone Number INTERFACE SYSTEM Refer to clinic/hospital department * (ABNORMAL) CBC WITH DIFFERENTIAL (06/30/2007 5:30 AM SENIOR FIELD ENGINEER) Pathologist [facility] WBC 7.3 4.8 - 10.8 K/ul INTERFACE SYSTEM RBC 3.31(L) 4.20 - 5.40 Mil/ul INTERFACE SYSTEM HEMOGLOBIN 10.2(L) 12.0 - 16.0 g/dL INTERFACE SYSTEM HEMATOCRIT 31.3(L) 36.0 - 46.0 % INTERFACE SYSTEM MCV 94.6 84.0 - 103.0 Fl INTERFACE SYSTEM MCH 30.8 27.0 - 34.0 pg INTERFACE SYSTEM MCHC 32.6 30.0 - 35.0 g/dL INTERFACE SYSTEM RDW 15.5(H) 11.0 - 14.5 % INTERFACE SYSTEM PLATELETS 283 140 - 440 K/ul INTERFACE SYSTEM MPV 9.9 8.9 - 12.8 Fl INTERFACE SYSTEM NEUTROPHILS 64.9 42.2 - 75.2 % INTERFACE SYSTEM LYMPHOCYTES 18.5(L) 24.0 - 44.0 % INTERFACE SYSTEM MONOCYTES 14.4(H) 2.0 - 10.0 % INTERFACE SYSTEM EOSINOPHILS 1.9 0.0 - 7.0 % INTERFACE SYSTEM BASOPHILS 0.3 0.0 - 1.0 % INTERFACE SYSTEM NEUTROPHIL ABSOLUTE 4.8 2.0 - 8.0 K/ul INTERFACE SYSTEM LYMPHOCYTE ABSOLUTE 1.4 1.2 - 4.0 K/ul INTERFACE SYSTEM MONOCYTE ABSOLUTE 1.1(H) 0.1 - 0.6 K/ul INTERFACE SYSTEM EOSINOPHIL ABSOLUTE 0.1 0.0 - 0.7 K/ul INTERFACE SYSTEM BASOPHILS ABSOLUTE 0.0 0.0 - 0.2 K/ul INTERFACE SYSTEM 06/30/2007 5:30 AM SENIOR FIELD ENGINEER us Merrick Sanchez MD HEMATOLOGY ORDERABLES Edited INTERFACE SYSTEM Refer to clinic/hospital department * (ABNORMAL) BASIC METABOLIC PANEL (06/30/2007 5:30 AM SENIOR FIELD ENGINEER) GLUCOSE 87 70 - 110 mg/dL INTERFACE SYSTEM BUN 10 7 - 17 mg/dL INTERFACE SYSTEM CREATININE 0.7 0.7 - 1.2 mg/dL INTERFACE SYSTEM SODIUM 137 136 - 145 mEq/L INTERFACE SYSTEM POTASSIUM 3.3(L) 3.5 - 5.0 mEq/L INTERFACE SYSTEM CHLORIDE 101 95 - 110 mEq/L INTERFACE SYSTEM CO2 28 22 - 32 mmol/l INTERFACE SYSTEM CALCIUM 9.4 8.4 - 10.5 mg/dL INTERFACE SYSTEM ANION GAP 11 9 - 20 mEq/L INTERFACE SYSTEM OSMOLALITY, CALCULATED 279 275 - 295 mOsm/Kg INTERFACE SYSTEM 06/30/2007 5:30 AM SENIOR FIELD ENGINEER us Merrick Sanchez MD CHEMISTRY ORDERABLES Edited Performing Organization Address [facility] de Phone Number INTERFACE SYSTEM Refer to clinic/hospital department * (ABNORMAL) POC GLUCOSE (06/29/2007 8:50 PM SENIOR FIELD ENGINEER) GLUCOSE POC 124(H) 60 - 100 mg/dL INTERFACE SYSTEM 06/29/2007 8:50 PM SENIOR FIELD ENGINEER us Trevin Mc MD POINT OF CARE TESTING Edited Performing Organization Address [facility] Phone Number INTERFACE SYSTEM Refer to clinic/hospital department * (ABNORMAL) POC GLUCOSE (06/29/2007 5:27 PM SENIOR FIELD ENGINEER) GLUCOSE POC 132(H) 60 - 100 mg/dL INTERFACE SYSTEM 06/29/2007 5:27 PM SENIOR FIELD ENGINEER us Trevin Mc MD POINT OF CARE TESTING Edited Performing Organization Address City/[facility] de Phone Number INTERFACE SYSTEM Refer to clinic/hospital department * (ABNORMAL) POC GLUCOSE (06/29/2007 12:11 PM SENIOR FIELD ENGINEER) GLUCOSE POC 135(H) 60 - 100 mg/dL INTERFACE SYSTEM 06/29/2007 12:1 1 PM SENIOR FIELD ENGINEER us Trevin Mc MD POINT OF CARE TESTING Edited Performing Organization Address City/[facility] Co de Phone Number INTERFACE SYSTEM Refer to clinic/hospital department * (ABNORMAL) POC GLUCOSE (06/29/2007 7:46 AM SENIOR FIELD ENGINEER) GLUCOSE POC 120(H) 60 - 100 mg/dL INTERFACE SYSTEM 06/29/2007 7:46 AM SENIOR FIELD ENGINEER us Trevin Mc MD POINT OF CARE TESTING Edited Performing Organization Address [facility] de Phone Number INTERFACE SYSTEM Refer to clinic/hospital department * XR CHEST PA OR AP (06/29/2007 7:43 AM SENIOR FIELD ENGINEER) Anatomical Region Laterality Modality Chest Other 06/29/2007 7:43 AM SENIOR FIELD ENGINEER Narrative 06/29/2007 7:43 AM SENIOR FIELD ENGINEER Exam: Chest - Portable Date/Time of Exam: Jun 29, 2007 7:43:36 AM History: Post-operative. Findings: AP compared to June 27 continues to show the patient to be status post a sternotomy and coronary bypass. There has been interval removal of the left subclavian access Bronson-Aaliyah catheter. There is mild cardiac enlargement, mild vascular congestion, and mild pulmonary interstitial edema. There continue to be small bilateral effusions. Overall, the appearance is significantly improved. There is no grossly acute pulmonary infiltrate. There is bibasilar atelectasis, particularly of the left side. Impression: Overall continued improvement, but with persistent vascular congestion. - Procedure Note Kian Bowden - 06/29/2007 Exam: Chest - Portable Date/Time of Exam: Jun 29, 2007 7:43:36 AM History: Post-operative. Findings: AP compared to June 27 continues to show the patient to be status posta sternotomy and coronary bypass. There has been interval removal of the left subclavian accessSwan-Aaliyah catheter. There is mild cardiac enlargement, mild vascular congestion, and mild pulmonaryinterstitial edema. There continue to be small bilateral effusions. Overall, the appearance issignificantly improved. There is no grossly acute pulmonary infiltrate. There is bibasilar atelectasis,particularly of the left side. Impression: Overall continued improvement, but with persistent vascularcongestion. - us Merrick Sanchez MD DIAGNOSTIC IMAGING ORDERABLES F inal Result * (ABNORMAL) CBC WITH DIFFERENTIAL (06/29/2007 5:00 AM SENIOR FIELD ENGINEER) WBC 9.4 4.8 - 10.8 K/ul INTERFACE SYSTEM RBC 2.37(L) 4.20 - 5.40 Mil/ul INTERFACE SYSTEM HEMOGLOBIN 7.4(L) 12.0 - 16.0 g/dL INTERFACE SYSTEM HEMATOCRIT 23.5(L) 36.0 - 46.0 % INTERFACE SYSTEM MCV 99.2 84.0 - 103.0 Fl INTERFACE SYSTEM MCH 31.2 27.0 - 34.0 pg INTERFACE SYSTEM MCHC 31.5 30.0 - 35.0 g/dL INTERFACE SYSTEM RDW 14.3 11.0 - 14.5 % INTERFACE SYSTEM PLATELETS 223 140 - 440 K/ul INTERFACE SYSTEM MPV 10.0 8.9 - 12.8 Fl INTERFACE SYSTEM NEUTROPHILS 70.6 42.2 - 75.2 % INTERFACE SYSTEM LYMPHOCYTES 17.0(L) 24.0 - 44.0 % INTERFACE SYSTEM MONOCYTES 10.7(H) 2.0 - 10.0 % INTERFA CE SYSTEM EOSINOPHILS 1.6 0.0 - 7.0 % INTERF LEIA SYSTEM BASOPHILS 0.1 0.0 - 1.0 % INTERFAC E SYSTEM NEUTROPHIL ABSOLUTE 6.6 2.0 - 8.0 K/ul INTERFACE SYSTEM LYMPHOCYTE ABSOLUTE 1.6 1.2 - 4.0 K/ul INTERFACE SYSTEM MONOCYTE ABSOLUTE 1.0(H) 0.1 - 0.6 K/ul INTERFACE SYSTEM EOSINOPHIL ABSOLUTE 0.2 0.0 - 0.7 K/ul INTERFACE SYSTEM BASOPHILS ABSOLUTE 0.0 0.0 - 0.2 K/ul INTERFACE SYSTEM PERIPHERAL BLOOD SMEAR REVIEW Automated Diff Automated Diff INTERFACE SYSTEM 06/29/2007 5:00 AM SENIOR FIELD ENGINEER us Merrick Sanchez MD HEMATOLOGY ORDERABLES Edited INTERFACE SYSTEM Refer to clinic/hospital department * (ABNORMAL) BASIC METABOLIC PANEL (06/29/2007 5:00 AM SENIOR FIELD ENGINEER) GLUCOSE 101 70 - 110 mg/dL INTERFACE SYSTEM BUN 13 7 - 17 mg/dL INTERFACE SYSTEM CREATININE 0.8 0.7 - 1.2 mg/dL INTERFACE SYSTEM SODIUM 138 136 - 145 mEq/L INTERFACE SYSTEM POTASSIUM 3.7 3.5 - 5.0 mEq/L INTERFACE SYSTEM CHLORIDE 104 95 - 110 mEq/L INTERFACE SYSTEM CO2 30 22 - 32 mmol/l INTERFACE SYSTEM CALCIUM 8.8 8.4 - 10.5 mg/dL INTERFACE SYSTEM ANION GAP 8(L) 9 - 20 mEq/L INTERFACE SYSTEM OSMOLALITY, CALCULATED 284 275 - 295 mOsm/Kg INTERFACE SYSTEM 06/29/2007 5:00 AM SENIOR FIELD ENGINEER us Merrick Sanchez MD CHEMISTRY ORDERABLES Edited Performing Organization Address City/[facility] de Phone Number INTERFACE SYSTEM Refer to clinic/hospital department * (ABNORMAL) POC GLUCOSE (06/28/2007 9:02 PM SENIOR FIELD ENGINEER) GLUCOSE POC 159(H) 60 - 100 mg/dL INTERFACE SYSTEM 06/28/2007 9:02 PM SENIOR FIELD ENGINEER us Juan Cox MD POINT OF CARE TESTING Edited Performing Organization Address [facility] de Phone Number INTERFACE SYSTEM Refer to clinic/hospital department * (ABNORMAL) POC GLUCOSE (06/28/2007 5:37 PM SENIOR FIELD ENGINEER) GLUCOSE POC 139(H) 60 - 100 mg/dL INTERFACE SYSTEM 06/28/2007 5:37 PM SENIOR FIELD ENGINEER us Juan Cox MD POINT OF CARE TESTING Edited Performing Organization Address City/[facility] de Phone Number INTERFACE SYSTEM Refer to clinic/hospital department * (ABNORMAL) POC GLUCOSE (06/28/2007 12:12 PM SENIOR FIELD ENGINEER) GLUCOSE POC 134(H) 60 - 100 mg/dL INTERFACE SYSTEM 06/28/2007 12:1 2 PM SENIOR FIELD ENGINEER us Juan Cox MD POINT OF CARE TESTING Edited Performing Organization Address [facility] de Phone Number INTERFACE SYSTEM Refer to clinic/hospital department * (ABNORMAL) POC GLUCOSE (06/28/2007 6:58 AM SENIOR FIELD ENGINEER) GLUCOSE POC 126(H) 60 - 100 mg/dL INTERFACE SYSTEM 06/28/2007 6:58 AM SENIOR FIELD ENGINEER us Juan Cox MD POINT OF CARE TESTING Edited Performing Organization Address [facility] de Phone Number INTERFACE SYSTEM Refer to clinic/hospital department * (ABNORMAL) POC GLUCOSE (06/28/2007 12:23 AM SENIOR FIELD ENGINEER) GLUCOSE POC 159(H) 60 - 100 mg/dL INTERFACE SYSTEM 06/28/2007 12:2 3 AM SENIOR FIELD ENGINEER us Juan Cox MD POINT OF CARE TESTING Edited Performing Organization Address [facility] de Phone Number INTERFACE SYSTEM Refer to clinic/hospital department * (ABNORMAL) POC GLUCOSE (06/27/2007 6:10 PM SENIOR FIELD ENGINEER) GLUCOSE POC 149(H) 60 - 100 mg/dL INTERFACE SYSTEM COMMENT POC Follow Protocol INTERFACE SYSTEM 06/27/2007 6:10 PM SENIOR FIELD ENGINEER Result Afia Cox MD POINT OF CARE TESTING Edited Performing Organization Address [facility] de Phone Number INTERFACE SYSTEM Refer to clinic/hospital department * (ABNORMAL) POC GLUCOSE (06/27/2007 12:14 PM SENIOR FIELD ENGINEER) GLUCOSE POC 133(H) 60 - 100 mg/dL INTERFACE SYSTEM COMMENT POC Follow Protocol INTERFACE SYSTEM 06/27/2007 12:1 4 PM SENIOR FIELD ENGINEER Result Afia Cox MD POINT OF CARE TESTING Edited Performing Organization Address [facility] de Phone Number INTERFACE SYSTEM Refer to clinic/hospital department * (ABNORMAL) POC GLUCOSE (06/27/2007 7:33 AM SENIOR FIELD ENGINEER) GLUCOSE POC 122(H) 60 - 100 mg/dL INTERFACE SYSTEM 06/27/2007 7:33 AM SENIOR FIELD ENGINEER us Juan Cox MD POINT OF CARE TESTING Edited INTERFACE SYSTEM Refer to clinic/hospital department * POC GLUCOSE (06/27/2007 6:22 AM SENIOR FIELD ENGINEER) GLUCOSE POC 91 60 - 100 mg/dL INTERFACE SYSTEM 06/27/2007 6:22 AM SENIOR FIELD ENGINEER us Juan Cox MD POINT OF CARE TESTING Edited Performing Organization Address City/[facility] Co de Phone Number INTERFACE SYSTEM Refer to clinic/hospital department * POC GLUCOSE (06/27/2007 4:19 AM SENIOR FIELD ENGINEER) GLUCOSE POC 99 60 - 100 mg/dL INTERFACE SYSTEM 06/27/2007 4:19 AM SENIOR FIELD ENGINEER us Juan Cox MD POINT OF CARE TESTING Edited Performing Organization Address City/[facility] Co de Phone Number INTERFACE SYSTEM Refer to clinic/hospital department * (ABNORMAL) CBC WITH DIFFERENTIAL (06/27/2007 3:24 AM SENIOR FIELD ENGINEER) WBC 12.9(H) 4.8 - 10.8 K/ul INTERFACE SYSTEM RBC 2.79(L) 4.20 - 5.40 Mil/ul INTERFACE SYSTEM HEMOGLOBIN 8.8(L) 12.0 - 16.0 g/dL INTERFACE SYSTEM HEMATOCRIT 27.2(L) 36.0 - 46.0 % INTERFACE SYSTEM MCV 97.5 84.0 - 103.0 Fl INTERFACE SYSTEM MCH 31.5 27.0 - 34.0 pg INTERFACE SYSTEM MCHC 32.4 30.0 - 35.0 g/dL INTERFACE SYSTEM RDW 14.2 11.0 - 14.5 % INTERFACE SYSTEM PLATELETS 227 140 - 440 K/ul INTERFACE SYSTEM MPV 9.4 8.9 - 12.8 Fl INTERFACE SYSTEM NEUTROPHILS 81.8(H) 42.2 - 75.2 % INTERFACE SYSTEM LYMPHOCYTES 7.7(L) 24.0 - 44.0 % INTERFACE SYSTEM MONOCYTES 10.3(H) 2.0 - 10.0 % INTERFA CE SYSTEM EOSINOPHILS 0.1 0.0 - 7.0 % INTERF LEIA SYSTEM BASOPHILS 0.1 0.0 - 1.0 % INTERFAC E SYSTEM NEUTROPHIL ABSOLUTE 10.6(H) 2.0 - 8.0 K/ul INTERFACE SYSTEM LYMPHOCYTE ABSOLUTE 1.0(L) 1.2 - 4.0 K/ul INTERFACE SYSTEM MONOCYTE ABSOLUTE 1.3(H) 0.1 - 0.6 K/ul INTERFACE SYSTEM EOSINOPHIL ABSOLUTE 0.0 0.0 - 0.7 K/ul INTERFACE SYSTEM BASOPHILS ABSOLUTE 0.0 0.0 - 0.2 K/ul INTERFACE SYSTEM PERIPHERAL BLOOD SMEAR REVIEW Automated Diff Automated Diff INTERFACE SYSTEM 06/27/2007 3:24 AM SENIOR FIELD ENGINEER us Juan Cox MD HEMATOLOGY ORDERABLES Edited Performing Organization Address City/[facility] Phone Number INTERFACE SYSTEM Refer to clinic/hospital department * (ABNORMAL) BASIC METABOLIC PANEL (06/27/2007 3:24 AM SENIOR FIELD ENGINEER) GLUCOSE 90 70 - 110 mg/dL INTERFACE SYSTEM BUN 10 7 - 17 mg/dL INTERFACE SYSTEM CREATININE 0.7 0.7 - 1.2 mg/dL INTERFACE SYSTEM SODIUM 143 136 - 145 mEq/L INTERFACE SYSTEM POTASSIUM 4.4 3.5 - 5.0 mEq/L INTERFACE SYSTEM CHLORIDE 112(H) 95 - 110 mEq/L INTERFACE SYSTEM CO2 27 22 - 32 mmol/l INTERFACE SYSTEM CALCIUM 8.7 8.4 - 10.5 mg/dL INTERFACE SYSTEM ANION GAP 8(L) 9 - 20 mEq/L INTERFACE SYSTEM OSMOLALITY, CALCULATED 293 275 - 295 mOsm/Kg INTERFACE SYSTEM 06/27/2007 3:24 AM SENIOR FIELD ENGINEER us Juan Cox MD CHEMISTRY ORDERABLES Edited Performing Organization Address [facility] Co de Phone Number INTERFACE SYSTEM Refer to clinic/hospital department * (ABNORMAL) POC GLUCOSE (06/27/2007 1:56 AM SENIOR FIELD ENGINEER) GLUCOSE POC 106(H) 60 - 100 mg/dL INTERFACE SYSTEM COMMENT POC Follow Protocol INTERFACE SYSTEM 06/27/2007 1:56 AM SENIOR FIELD ENGINEER us Juan Cox MD POINT OF CARE TESTING Edited Performing Organization Address City/[facility] de Phone Number INTERFACE SYSTEM Refer to clinic/hospital department * (ABNORMAL) POC GLUCOSE (06/26/2007 11:54 PM SENIOR FIELD ENGINEER) GLUCOSE POC 104(H) 60 - 100 mg/dL INTERFACE SYSTEM 06/26/2007 11:5 4 PM SENIOR FIELD ENGINEER us Juan Cox MD POINT OF CARE TESTING Edited Performing Organization Address [facility] de Phone Number INTERFACE SYSTEM Refer to clinic/hospital department * (ABNORMAL) POC GLUCOSE (06/26/2007 9:54 PM SENIOR FIELD ENGINEER) GLUCOSE POC 105(H) 60 - 100 mg/dL INTERFACE SYSTEM 06/26/2007 9:54 PM SENIOR FIELD ENGINEER us Juan Cox MD POINT OF CARE TESTING Edited Performing Organization Address [facility] Phone Number INTERFACE SYSTEM Refer to clinic/hospital department * (ABNORMAL) POC ISTAT EG 7+ (06/26/2007 9:04 PM SENIOR FIELD ENGINEER) SPECIMEN TYPE Arterial INTERF LEIA SYSTEM Comment: Test Performed By [id number] PEEP: 05 Pulse OX: 96 Hemoglobin calculated from Hematocrit result FIO2 50 INTERFACE SYSTEM PH 7.33(L) 7.35 - 7.45 Unit INTERFACE SYSTEM PH TEMP CORRECT 7.33(L) 7.35 - 7.45 Unit INTERFACE SYSTEM PCO2 POC 49(H) 35 - 45 mmHg INTERFACE SYSTEM PCO2 TEMP CORRECT 49(H) 35 - 45 mmHg INTERFACE SYSTEM PO2 81 80 - 105 mmHg INTERFACE SYSTEM PO2 TEMP CORRECT 81 80 - 105 mmHg INTERFACE SYSTEM HCO3 (CALC) POC 25.3 22.0 - 26.0 mmol/l INTERFACE SYSTEM BASE EXCESS -1 -2 - 3 mmol/l INTERFACE SYSTEM HEMOGLOBIN POC 8.8 3 g/dL 12.0 - 16.0 g/dL INTERFACE SYSTEM HEMATOCRIT ABG 26(L) 38 - 51 % INTER FACE SYSTEM O2 SATURATION 95 95 - 98 % INTERF LEIA SYSTEM TCO2 (CALC) POC 27 23 - 27 mmol/l INTERFACE SYSTEM SODIUM 139 138 - 146 mEq/L INTERFACE SYSTEM POTASSIUM 4.3 3.5 - 4.9 mEq/L INTERFACE SYSTEM CALCIUM IONIZED 1.23 1.12 - 1.32 mmol/l INTERFACE SYSTEM 06/26/2007 9:04 PM SENIOR FIELD ENGINEER us Juan Cox MD POINT OF CARE TESTING COM Edited Performing Organization Address City/[facility] de Phone Number INTERFACE SYSTEM Refer to clinic/hospital department * (ABNORMAL) POC GLUCOSE (06/26/2007 8:53 PM SENIOR FIELD ENGINEER) GLUCOSE POC 105(H) 60 - 100 mg/dL INTERFACE SYSTEM 06/26/2007 8:53 PM SENIOR FIELD ENGINEER us Juan Cox MD POINT OF CARE TESTING Edited Performing Organization Address City/[facility] de Phone Number INTERFACE SYSTEM Refer to clinic/hospital department * (ABNORMAL) POC GLUCOSE (06/26/2007 7:48 PM SENIOR FIELD ENGINEER) GLUCOSE POC 124(H) 60 - 100 mg/dL INTERFACE SYSTEM 06/26/2007 7:48 PM SENIOR FIELD ENGINEER us Juan Cox MD POINT OF CARE TESTING Edited Performing Organization Address [facility] de Phone Number INTERFACE SYSTEM Refer to clinic/hospital department * (ABNORMAL) POC ISTAT EG 7+ (06/26/2007 7:41 PM SENIOR FIELD ENGINEER) SPECIMEN TYPE Arterial INTERF LEIA SYSTEM Comment: Test Performed By [id number] PEEP: 05 Pulse OX: 95 Hemoglobin calculated from Hematocrit result FIO2 50 INTERFACE SYSTEM PH 7.28(L) 7.35 - 7.45 Unit INTERFACE SYSTEM PH TEMP CORRECT 7.28(L) 7.35 - 7.45 Unit INTERFACE SYSTEM PCO2 POC 54(H) 35 - 45 mmHg INTERFACE SYSTEM PCO2 TEMP CORRECT 54(H) 35 - 45 mmHg INTERFACE SYSTEM PO2 78(L) 80 - 105 mmHg INTERFACE SYSTEM PO2 TEMP CORRECT 78(L) 80 - 105 mmHg INTERFACE SYSTEM HCO3 (CALC) POC 25.0 22.0 - 26.0 mmol/l INTERFACE SYSTEM BASE EXCESS -2 -2 - 3 mmol/l INTERFACE SYSTEM HEMOGLOBIN POC 8.5 3 g/dL 12.0 - 16.0 g/dL INTERFACE SYSTEM HEMATOCRIT ABG 25(L) 38 - 51 % INTER FACE SYSTEM O2 SATURATION 93(L) 95 - 98 % INTERF LEIA SYSTEM TCO2 (CALC) POC 27 23 - 27 mmol/l INTERFACE SYSTEM SODIUM 139 138 - 146 mEq/L INTERFACE SYSTEM POTASSIUM 3.7 3.5 - 4.9 mEq/L INTERFACE SYSTEM CALCIUM IONIZED 1.24 1.12 - 1.32 mmol/l INTERFACE SYSTEM 06/26/2007 7:41 PM SENIOR FIELD ENGINEER us Juan Cox MD POINT OF CARE TESTING COM Edited Performing Organization Address City/[facility] Co de Phone Number INTERFACE SYSTEM Refer to clinic/hospital department * (ABNORMAL) POC GLUCOSE (06/26/2007 6:52 PM SENIOR FIELD ENGINEER) GLUCOSE POC 165(H) 60 - 100 mg/dL INTERFACE SYSTEM 06/26/2007 6:52 PM SENIOR FIELD ENGINEER us Juan Cox MD POINT OF CARE TESTING Edited Performing Organization Address City/[facility] Co de Phone Number INTERFACE SYSTEM Refer to clinic/hospital department * (ABNORMAL) POC GLUCOSE (06/26/2007 5:59 PM SENIOR FIELD ENGINEER) GLUCOSE POC 130(H) 60 - 100 mg/dL INTERFACE SYSTEM 06/26/2007 5:59 PM SENIOR FIELD ENGINEER us Juan Cox MD POINT OF CARE TESTING Edited Performing Organization Address City/State/[facility] Co de Phone Number INTERFACE SYSTEM Refer to clinic/hospital department * (ABNORMAL) CBC WITHOUT DIFFERENTIAL (06/26/2007 5:07 PM SENIOR FIELD ENGINEER) WBC 9.9 4.8 - 10.8 K/ul INTERFACE SYSTEM RBC 2.62(L) 4.20 - 5.40 Mil/ul INTERFACE SYSTEM HEMOGLOBIN 8.2(L) 12.0 - 16.0 g/dL INTERFACE SYSTEM HEMATOCRIT 25.1(L) 36.0 - 46.0 % INTERFACE SYSTEM MCV 95.8 84.0 - 103.0 Fl INTERFACE SYSTEM MCH 31.3 27.0 - 34.0 pg INTERFACE SYSTEM MCHC 32.7 30.0 - 35.0 g/dL INTERFACE SYSTEM RDW 14.0 11.0 - 14.5 % INTERFACE SYSTEM PLATELETS 203 140 - 440 K/ul INTERFACE SYSTEM MPV 9.1 8.9 - 12.8 Fl INTERFACE SYSTEM NEUTROPHILS 79.8(H) 42.2 - 75.2 % INTERFACE SYSTEM LYMPHOCYTES 10.3(L) 24.0 - 44.0 % INTERFACE SYSTEM MONOCYTES 9.6 2.0 - 10.0 % INTERFACE SYSTEM EOSINOPHILS 0.2 0.0 - 7.0 % INTERFACE SYSTEM BASOPHILS 0.1 0.0 - 1.0 % INTERFACE SYSTEM NEUTROPHIL ABSOLUTE 7.9 2.0 - 8.0 K/ul INTERFACE SYSTEM LYMPHOCYTE ABSOLUTE 1.0(L) 1.2 - 4.0 K/ul INTERFACE SYSTEM MONOCYTE ABSOLUTE 1.0(H) 0.1 - 0.6 K/ul INTERFACE SYSTEM EOSINOPHIL ABSOLUTE 0.0 0.0 - 0.7 K/ul INTERFACE SYSTEM BASOPHILS ABSOLUTE 0.0 0.0 - 0.2 K/ul INTERFACE SYSTEM 06/26/2007 5:07 PM SENIOR FIELD ENGINEER us Juan Cox MD HEMATOLOGY ORDERABLES Edited INTERFACE SYSTEM Refer to clinic/hospital department * (ABNORMAL) POC GLUCOSE (06/26/2007 4:50 PM SENIOR FIELD ENGINEER) GLUCOSE POC 133(H) 60 - 100 mg/dL INTERFACE SYSTEM 06/26/2007 4:50 PM SENIOR FIELD ENGINEER us Juan Cox MD POINT OF CARE TESTING Edited INTERFACE SYSTEM Refer to clinic/hospital department * (ABNORMAL) POC GLUCOSE (06/26/2007 3:48 PM SENIOR FIELD ENGINEER) GLUCOSE POC 119(H) 60 - 100 mg/dL INTERFACE SYSTEM 06/26/2007 3:48 PM SENIOR FIELD ENGINEER us Juan Cox MD POINT OF CARE TESTING Edited Performing Organization Address City/[facility] Co de Phone Number INTERFACE SYSTEM Refer to clinic/hospital department * (ABNORMAL) POC GLUCOSE (06/26/2007 2:45 PM SENIOR FIELD ENGINEER) GLUCOSE POC 155(H) 60 - 100 mg/dL INTERFACE SYSTEM 06/26/2007 2:45 PM SENIOR FIELD ENGINEER us Juan Cox MD POINT OF CARE TESTING Edited Performing Organization Address [facility] de Phone Number INTERFACE SYSTEM Refer to clinic/hospital department * (ABNORMAL) POC ISTAT EG 7+ (06/26/2007 2:03 PM SENIOR FIELD ENGINEER) SPECIMEN TYPE Arterial INTERF LEIA SYSTEM Comment: Test Performed By [id number] Tidal volume: 500 PEEP: 05 Rate: 12 Pulse OX: 97 Hemoglobin calculated from Hematocrit result FIO2 50 INTERFACE SYSTEM PH 7.35 7.35 - 7.45 Unit INTERFACE SYSTEM PH TEMP CORRECT 7.35 7.35 - 7.45 Unit INTERFACE SYSTEM PCO2 POC 43 35 - 45 mmHg INTERFACE SYSTEM PCO2 TEMP CORRECT 43 35 - 45 mmHg INTERFACE SYSTEM PO2 74(L) 80 - 105 mmHg INTERFACE SYSTEM PO2 TEMP CORRECT 74(L) 80 - 105 mmHg INTERFACE SYSTEM HCO3 (CALC) POC 23.4 22.0 - 26.0 mmol/l INTERFACE SYSTEM BASE EXCESS -2 -2 - 3 mmol/l INTERFACE SYSTEM HEMOGLOBIN POC 8.2 3 g/dL 12.0 - 16.0 g/dL INTERFACE SYSTEM HEMATOCRIT ABG 24(L) 38 - 51 % INTER FACE SYSTEM O2 SATURATION 94(L) 95 - 98 % INTERF LEIA SYSTEM TCO2 (CALC) POC 25 23 - 27 mmol/l INTERFACE SYSTEM SODIUM 139 138 - 146 mEq/L INTERFACE SYSTEM POTASSIUM 4.2 3.5 - 4.9 mEq/L INTERFACE SYSTEM CALCIUM IONIZED 1.16 1.12 - 1.32 mmol/l INTERFACE SYSTEM 06/26/2007 2:03 PM SENIOR FIELD ENGINEER us Juan Cox MD POINT OF CARE TESTING COM Edited Performing Organization Address [facility] de Phone Number INTERFACE SYSTEM Refer to clinic/hospital department * (ABNORMAL) POC GLUCOSE (06/26/2007 1:57 PM SENIOR FIELD ENGINEER) GLUCOSE POC 152(H) 60 - 100 mg/dL INTERFACE SYSTEM 06/26/2007 1:57 PM SENIOR FIELD ENGINEER us Juan Cox MD POINT OF CARE TESTING Edited Performing Organization Address [facility] de Phone Number INTERFACE SYSTEM Refer to clinic/hospital department * (ABNORMAL) POC GLUCOSE (06/26/2007 7:06 AM SENIOR FIELD ENGINEER) GLUCOSE POC 109(H) 60 - 100 mg/dL INTERFACE SYSTEM COMMENT POC Follow Protocol INTERFACE SYSTEM 06/26/2007 7:06 AM SENIOR FIELD ENGINEER us Juan Cox MD POINT OF CARE TESTING Edited Performing Organization Address [facility] de Phone Number INTERFACE SYSTEM Refer to clinic/hospital department * (ABNORMAL) CBC WITHOUT DIFFERENTIAL (06/26/2007 4:46 AM SENIOR FIELD ENGINEER) WBC 7.6 4.8 - 10.8 K/ul INTERFACE SYSTEM RBC 4.30 4.20 - 5.40 Mil/ul INTERFACE SYSTEM HEMOGLOBIN 13.7 12.0 - 16.0 g/dL INTERFACE SYSTEM HEMATOCRIT 41.6 36.0 - 46.0 % INTERFACE SYSTEM MCV 96.7 84.0 - 103.0 Fl INTERFACE SYSTEM MCH 31.9 27.0 - 34.0 pg INTERFACE SYSTEM MCHC 32.9 30.0 - 35.0 g/dL INTERFACE SYSTEM RDW 13.9 11.0 - 14.5 % INTERFACE SYSTEM PLATELETS 361 140 - 440 K/ul INTERFACE SYSTEM MPV 9.8 8.9 - 12.8 Fl INTERFACE SYSTEM NEUTROPHILS 52.1 42.2 - 75.2 % INTERFACE SYSTEM LYMPHOCYTES 34.0 24.0 - 44.0 % INTERFACE SYSTEM MONOCYTES 11.8(H) 2.0 - 10.0 % INTERFACE SYSTEM EOSINOPHILS 2.0 0.0 - 7.0 % INTERFACE SYSTEM BASOPHILS 0.1 0.0 - 1.0 % INTERFACE SYSTEM NEUTROPHIL ABSOLUTE 4.0 2.0 - 8.0 K/ul INTERFACE SYSTEM LYMPHOCYTE ABSOLUTE 2.6 1.2 - 4.0 K/ul INTERFACE SYSTEM MONOCYTE ABSOLUTE 0.9(H) 0.1 - 0.6 K/ul INTERFACE SYSTEM EOSINOPHIL ABSOLUTE 0.2 0.0 - 0.7 K/ul INTERFACE SYSTEM BASOPHILS ABSOLUTE 0.0 0.0 - 0.2 K/ul INTERFACE SYSTEM 06/26/2007 4:46 AM SENIOR FIELD ENGINEER Merrick Sanchez MD HEMATOLOGY ORDERABLES Edited Performing Organization Address City/[facility] de Phone Number INTERFACE SYSTEM Refer to clinic/hospital department * PTT (06/26/2007 4:46 AM SENIOR FIELD ENGINEER) PTT 30.6 21.6 - 35.6 Secs INTERFACE SYSTEM Comment: Therapeutic Range: Hi-level PE/DVT heparin protocol 80.1 -95.0 sec Lo-level PE/DVT heparin protocol 67.1 - 80.0 sec Cardiac Heparin Protocol 67.1 - 85.0 sec Neuro Heparin Protocol 67.1 - 80.0 sec As of 05/10/2006 note change in APTT Normal Range. 06/26/2007 4:46 AM SENIOR FIELD ENGINEER Merrick Sanchez MD HEMATOLOGY ORDERABLES Edited Performing Organization Address [facility] Phone Number INTERFACE SYSTEM Refer to clinic/hospital department * (ABNORMAL) CBC WITHOUT DIFFERENTIAL (06/25/2007 4:28 AM SENIOR FIELD ENGINEER) WBC 7.0 4.8 - 10.8 K/ul INTERFACE SYSTEM RBC 4.22 4.20 - 5.40 Mil/ul INTERFACE SYSTEM HEMOGLOBIN 13.3 12.0 - 16.0 g/dL INTERFACE SYSTEM HEMATOCRIT 40.9 36.0 - 46.0 % INTERFACE SYSTEM MCV 96.9 84.0 - 103.0 Fl INTERFACE SYSTEM MCH 31.5 27.0 - 34.0 pg INTERFACE SYSTEM MCHC 32.5 30.0 - 35.0 g/dL INTERFACE SYSTEM RDW 14.1 11.0 - 14.5 % INTERFACE SYSTEM PLATELETS 340 140 - 440 K/ul INTERFACE SYSTEM MPV 9.7 8.9 - 12.8 Fl INTERFACE SYSTEM NEUTROPHILS 36.3(L) 42.2 - 75.2 % INTERFACE SYSTEM LYMPHOCYTES 52.5(H) 24.0 - 44.0 % INTERFACE SYSTEM MONOCYTES 8.5 2.0 - 10.0 % INTERFACE SYSTEM EOSINOPHILS 2.4 0.0 - 7.0 % INTERFACE SYSTEM BASOPHILS 0.3 0.0 - 1.0 % INTERFACE SYSTEM NEUTROPHIL ABSOLUTE 2.5 2.0 - 8.0 K/ul INTERFACE SYSTEM LYMPHOCYTE ABSOLUTE 3.7 1.2 - 4.0 K/ul INTERFACE SYSTEM MONOCYTE ABSOLUTE 0.6 0.1 - 0.6 K/ul INTERFACE SYSTEM EOSINOPHIL ABSOLUTE 0.2 0.0 - 0.7 K/ul INTERFACE SYSTEM BASOPHILS ABSOLUTE 0.0 0.0 - 0.2 K/ul INTERFACE SYSTEM 06/25/2007 4:28 AM SENIOR FIELD ENGINEER Merrick Sanchez MD HEMATOLOGY ORDERABLES Edited Performing Organization Address [facility] de Phone Number INTERFACE SYSTEM Refer to clinic/hospital department * (ABNORMAL) PTT (06/25/2007 4:28 AM SENIOR FIELD ENGINEER) PTT 85.7(H) 21.6 - 35.6 Secs INTERFACE SYSTEM Comment: Therapeutic Range: Hi-level PE/DVT heparin protocol 80.1 -95.0 sec Lo-level PE/DVT heparin protocol 67.1 - 80.0 sec Cardiac Heparin Protocol 67.1 - 85.0 sec Neuro Heparin Protocol 67.1 - 80.0 sec As of 05/10/2006 note change in APTT Normal Range. 06/25/2007 4:28 AM SENIOR FIELD ENGINEER us Merrick Sanchez MD HEMATOLOGY ORDERABLES Edited Performing Organization Address [facility] de Phone Number INTERFACE SYSTEM Refer to clinic/hospital department * (ABNORMAL) PTT (06/24/2007 10:00 PM SENIOR FIELD ENGINEER) PTT 156.8(AA) 21.6 - 35.6 Secs INTERFACE SYSTEM Comment: Therapeutic Range: Hi-level PE/DVT heparin protocol 80.1 -95.0 sec Lo-level PE/DVT heparin protocol 67.1 - 80.0 sec Cardiac Heparin Protocol 67.1 - 85.0 sec Neuro Heparin Protocol 67.1 - 80.0 sec As of 05/10/2006 note change in APTT Normal Range. Potentially critical/toxic APTT called by JWT to CHRISTIANA, with verbal read back, at 06/24/07 22:20. 06/24/2007 10:0 0 PM SENIOR FIELD ENGINEER Merrick Sanchez MD HEMATOLOGY ORDERABLES Edited Performing Organization Address [facility] Phone Number INTERFACE SYSTEM Refer to clinic/hospital department * (ABNORMAL) PTT (06/24/2007 4:20 PM SENIOR FIELD ENGINEER) PTT 159.4(AA) 21.6 - 35.6 Secs INTERFACE SYSTEM Comment: Therapeutic Range: Hi-level PE/DVT heparin protocol 80.1 -95.0 sec Lo-level PE/DVT heparin protocol 67.1 - 80.0 sec Cardiac Heparin Protocol 67.1 - 85.0 sec Neuro Heparin Protocol 67.1 - 80.0 sec As of 05/10/2006 note change in APTT Normal Range. Potentially critical/toxic APTT called by JWT to VON, with verbal read back, at 06/24/07 16:47. 06/24/2007 4:20 PM SENIOR FIELD ENGINEER Merrick Sanchez MD HEMATOLOGY ORDERABLES Edited Performing Organization Address [facility] Phone Number INTERFACE SYSTEM Refer to clinic/hospital department * CARDIAC ENZYMES (06/24/2007 1:30 PM SENIOR FIELD ENGINEER) TROPONIN I 0.1 0.0 - 1.3 ng/mL INTERFACE SYSTEM Comment: As of 06 the Troponin Reference Range has changed from 0.0-1.5 ng/ml to 0.0- 1.3 ng/ml due to a change in testing methodology. CKMB 0.6 0.0 - 5.0 ng/mL INTERFACE SYSTEM 06/24/2007 1:30 PM SENIOR FIELD ENGINEER Jacob Lau MD CHEMISTRY ORDERABLES Edite d Performing Organization Address [facility] de Phone Number INTERFACE SYSTEM Refer to clinic/hospital department * (ABNORMAL) LIPID PANEL (06/24/2007 7:08 AM SENIOR FIELD ENGINEER) CHOLESTEROL 219(H) 75 - 200 mg/dL INTERFACE SYSTEM HDL 29(L) 40 - 60 mg/dL INTERFACE SYSTEM TRIGLYCERIDE 227(H) 0 - 200 mg/dL INTERFACE SYSTEM CALCULATED LDL CHOLESTEROL 145(H) 0 - 130 mg/dL INTERFACE SYSTEM CALCULATED TOTAL CHOLESTEROL TO HDL RATIO 7.55(H) 3.27 - 4.44 INTERFACE SYSTEM 06/24/2007 7:08 AM SENIOR FIELD ENGINEER us Merrick Sanchez MD CHEMISTRY ORDERABLES Edited Performing Organization Address [facility] de Phone Number INTERFACE SYSTEM Refer to clinic/hospital department * (ABNORMAL) COMPREHENSIVE METABOLIC PANEL (06/24/2007 7:08 AM SENIOR FIELD ENGINEER) GLOBULIN (CALC) 2.9 2.4 - 3.9 g/dL INTERFACE SYSTEM ALBUMIN/GLOBULIN RATIO 1.4 1.0 - 2.3 INTERFACE SYSTEM GLUCOSE 92 70 - 110 mg/dL INTERFACE SYSTEM BUN 10 7 - 17 mg/dL INTERFACE SYSTEM CREATININE 0.9 0.7 - 1.2 mg/dL INTERFACE SYSTEM SODIUM 137 136 - 145 mEq/L INTERFACE SYSTEM POTASSIUM 4.2 3.5 - 5.0 mEq/L INTERFACE SYSTEM CHLORIDE 107 95 - 110 mEq/L INTERFACE SYSTEM CO2 27 22 - 32 mmol/l INTERFACE SYSTEM CALCIUM 9.3 8.4 - 10.5 mg/dL INTERFACE SYSTEM TOTAL PROTEIN 6.9 6.3 - 8.2 g/dL INTERFACE SYSTEM ALBUMIN 4.0 3.5 - 5.0 g/dL INTERFACE SYSTEM ALKALINE PHOSPHATASE 100 25 - 100 U/L INTERFACE SYSTEM AST 26 8 - 33 U/L INTERFACE SYSTEM ALT 16 4 - 36 IU/L INTERFACE SYSTEM BILIRUBIN TOTAL 0.3 0.3 - 1.2 mg/dL INTERFACE SYSTEM ANION GAP 7(L) 9 - 20 mEq/L INTERFACE SYSTEM OSMOLALITY, CALCULATED 281 275 - 295 mOsm/Kg INTERFACE SYSTEM 06/24/2007 7:08 AM SENIOR FIELD ENGINEER us Merrick Sanchez MD CHEMISTRY ORDERABLES Edited INTERFACE SYSTEM Refer to clinic/hospital department * (ABNORMAL) CBC WITH DIFFERENTIAL (06/24/2007 7:08 AM SENIOR FIELD ENGINEER) Pathologist [facility] WBC 8.2 4.8 - 10.8 K/ul INTERFACE SYSTEM RBC 4.24 4.20 - 5.40 Mil/ul INTERFACE SYSTEM HEMOGLOBIN 13.5 12.0 - 16.0 g/dL INTERFACE SYSTEM HEMATOCRIT 41.0 36.0 - 46.0 % INTERFACE SYSTEM MCV 96.7 84.0 - 103.0 Fl INTERFACE SYSTEM MCH 31.8 27.0 - 34.0 pg INTERFACE SYSTEM MCHC 32.9 30.0 - 35.0 g/dL INTERFACE SYSTEM RDW 14.3 11.0 - 14.5 % INTERFACE SYSTEM PLATELETS 347 140 - 440 K/ul INTERFACE SYSTEM MPV 9.5 8.9 - 12.8 Fl INTERFACE SYSTEM NEUTROPHILS 44.6 42.2 - 75.2 % INTERFACE SYSTEM LYMPHOCYTES 43.1 24.0 - 44.0 % INTERFACE SYSTEM MONOCYTES 9.4 2.0 - 10.0 % INTERFACE SYSTEM EOSINOPHILS 2.7 0.0 - 7.0 % INTERFACE SYSTEM BASOPHILS 0.2 0.0 - 1.0 % INTERFACE SYSTEM NEUTROPHIL ABSOLUTE 3.6 2.0 - 8.0 K/ul INTERFACE SYSTEM LYMPHOCYTE ABSOLUTE 3.5 1.2 - 4.0 K/ul INTERFACE SYSTEM MONOCYTE ABSOLUTE 0.8(H) 0.1 - 0.6 K/ul INTERFACE SYSTEM EOSINOPHIL ABSOLUTE 0.2 0.0 - 0.7 K/ul INTERFACE SYSTEM BASOPHILS ABSOLUTE 0.0 0.0 - 0.2 K/ul INTERFACE SYSTEM 06/24/2007 7:08 AM SENIOR FIELD ENGINEER Merrick Sanchez MD HEMATOLOGY ORDERABLES Edited INTERFACE SYSTEM Refer to clinic/hospital department * CARDIAC ENZYMES (06/24/2007 7:08 AM SENIOR FIELD ENGINEER) Pathologist [facility] TROPONIN I 0.1 0.0 - 1.3 ng/mL INTERFACE SYSTEM Comment: As of 06 the Troponin Reference Range has changed from 0.0-1.5 ng/ml to 0.0- 1.3 ng/ml due to a change in testing methodology. CKMB 0.6 0.0 - 5.0 ng/mL INTERFACE SYSTEM 06/24/2007 7:08 AM SENIOR FIELD ENGINEER Jacob Lau MD CHEMISTRY ORDERABLES Edite d INTERFACE SYSTEM Refer to clinic/hospital department * (ABNORMAL) CBC WITH DIFFERENTIAL (06/24/2007 1:03 AM SENIOR FIELD ENGINEER) WBC 10.6 4.8 - 10.8 K/ul INTERFACE SYSTEM RBC 4.41 4.20 - 5.40 Mil/ul INTERFACE SYSTEM HEMOGLOBIN 14.4 12.0 - 16.0 g/dL INTERFACE SYSTEM HEMATOCRIT 42.5 36.0 - 46.0 % INTERFACE SYSTEM MCV 96.4 84.0 - 103.0 Fl INTERFACE SYSTEM MCH 32.7 27.0 - 34.0 pg INTERFACE SYSTEM MCHC 33.9 30.0 - 35.0 g/dL INTERFACE SYSTEM RDW 13.9 11.0 - 14.5 % INTERFACE SYSTEM PLATELETS 389 140 - 440 K/ul INTERFACE SYSTEM MPV 9.5 8.9 - 12.8 Fl INTERFACE SYSTEM NEUTROPHILS 52.9 42.2 - 75.2 % INTERFACE SYSTEM LYMPHOCYTES 35.7 24.0 - 44.0 % INTERFACE SYSTEM MONOCYTES 9.1 2.0 - 10.0 % INTERFACE SYSTEM EOSINOPHILS 1.9 0.0 - 7.0 % INTERFACE SYSTEM BASOPHILS 0.4 0.0 - 1.0 % INTERFACE SYSTEM NEUTROPHIL ABSOLUTE 5.6 2.0 - 8.0 K/ul INTERFACE SYSTEM LYMPHOCYTE ABSOLUTE 3.8 1.2 - 4.0 K/ul INTERFACE SYSTEM MONOCYTE ABSOLUTE 1.0(H) 0.1 - 0.6 K/ul INTERFACE SYSTEM EOSINOPHIL ABSOLUTE 0.2 0.0 - 0.7 K/ul INTERFACE SYSTEM BASOPHILS ABSOLUTE 0.0 0.0 - 0.2 K/ul INTERFACE SYSTEM 06/24/2007 1:03 AM SENIOR FIELD ENGINEER Jacob Lau MD HEMATOLOGY ORDERABLES Edit ed INTERFACE SYSTEM Refer to clinic/hospital department * D-DIMER (06/24/2007 1:03 AM SENIOR FIELD ENGINEER) D-DIMER QUANT 0.3 0.0 - 0.5 mcg/mL INTERFACE SYSTEM Comment: Testing performed using the STA Liatest D-Di kit. This test can be used as an aid to the diagnosis of deep venous thrombosis and pulmonary embolism. In clinical studies it has been reported that, with a cutoff value of 0.5 mcg/mL FEU, the negative predictive value for the exclusion of thrombosis was within the 95-100% range. 06/24/2007 1:03 AM SENIOR FIELD ENGINEER Jacob Lau MD HEMATOLOGY ORDERABLES Edit ed Performing Organization Address [facility] de Phone Number INTERFACE SYSTEM Refer to clinic/hospital department * PTT (06/24/2007 1:03 AM SENIOR FIELD ENGINEER) PTT 31.5 21.6 - 35.6 Secs INTERFACE SYSTEM Comment: Therapeutic Range: Hi-level PE/DVT heparin protocol 80.1 -95.0 sec Lo-level PE/DVT heparin protocol 67.1 - 80.0 sec Cardiac Heparin Protocol 67.1 - 85.0 sec Neuro Heparin Protocol 67.1 - 80.0 sec As of 05/10/2006 note change in APTT Normal Range. 06/24/2007 1:03 AM SENIOR FIELD ENGINEER Jacob Lau MD HEMATOLOGY ORDERABLES Edit ed Performing Organization Address [facility] de Phone Number INTERFACE SYSTEM Refer to clinic/hospital department * PROTIME-INR (06/24/2007 1:03 AM SENIOR FIELD ENGINEER) PROTIME 14.0 12.8 - 15.8 Secs INTERFACE SYSTEM Comment: As of 2007 note change in normal range. INR 1.0 INTERFACE SYSTEM Comment: Expected Values for INR: DVT/PE Goal INR 2.5; range 2.0 - 3.0 Valve Replacement Tissue Goal INR 2.5; range 2.0 - 3.0 Mechanical Goal INR 3.0; range 2.5 - 3.5 POST-NC Goal INR 2.5; range 2.0 - 3.0 or Goal 3.0; range 2.5 - 3.5 Atrial Fibrillation Goal INR 2.5; range 2.0 - 3.0 Ischemic Stroke Goal INR 2.5; range 2.0 - 3.0 For additional information see Guidelines for Anticoagulation available from the pharmacy [facility]. 06/24/2007 1:03 AM SENIOR FIELD ENGINEER Jacob Lau MD HEMATOLOGY ORDERABLES Edit ed Performing Organization Address [facility] de Phone Number INTERFACE SYSTEM Refer to clinic/hospital department * (ABNORMAL) BASIC METABOLIC PANEL (06/24/2007 1:03 AM SENIOR FIELD ENGINEER) GLUCOSE 116(H) 70 - 110 mg/dL INTERFACE SYSTEM BUN 10 7 - 17 mg/dL INTERFACE SYSTEM CREATININE 1.0 0.7 - 1.2 mg/dL INTERFACE SYSTEM SODIUM 137 136 - 145 mEq/L INTERFACE SYSTEM POTASSIUM 3.4(L) 3.5 - 5.0 mEq/L INTERFACE SYSTEM CHLORIDE 103 95 - 110 mEq/L INTERFACE SYSTEM CO2 29 22 - 32 mmol/l INTERFACE SYSTEM CALCIUM 9.6 8.4 - 10.5 mg/dL INTERFACE SYSTEM ANION GAP 8(L) 9 - 20 mEq/L INTERFACE SYSTEM OSMOLALITY, CALCULATED 281 275 - 295 mOsm/Kg INTERFACE SYSTEM 06/24/2007 1:03 AM SENIOR FIELD ENGINEER Jacob Lau MD CHEMISTRY ORDERABLES Edite d Performing Organization Address [facility] de Phone Number INTERFACE SYSTEM Refer to clinic/hospital department * CARDIAC ENZYMES (06/24/2007 1:03 AM SENIOR FIELD ENGINEER) TROPONIN I 0.1 0.0 - 1.3 ng/mL INTERFACE SYSTEM Comment: As of 06 the Troponin Reference Range has changed from 0.0-1.5 ng/ml to 0.0- 1.3 ng/ml due to a change in testing methodology. CKMB 0.4 0.0 - 5.0 ng/mL INTERFACE SYSTEM 06/24/2007 1:03 AM SENIOR FIELD ENGINEER us Jacob Lau MD CHEMISTRY ORDERABLES Edite d INTERFACE SYSTEM Refer to clinic/hospital department documented in this encounter Visit Diagnoses Diagnosis Chest pain, unspecified documented in this encounter Care Teams Operations Forester Relationship Specialty Start Date End Date Julio Gutierrez DO [address] [place] [address] PCP - General Park Guide 02/09/11 documented as of this encounter
--- OUTSIDE RECORDS SUMMARY | 2025-01-15 13:41 | XMS_ITS | Encounter Summary ---
Author Organization [facility] Address [address] [place] [address] Care Team Providers Care Specialist Managers Name Role Phone Julio Gutierrez DO Primary Care Provider [phone] Encounter Details Date Type Department Care Team (Latest Contact Info) Description 12/19/2002 Outpatient Historical Cardio Pulmonary Rehab [address] [place] [address] Benja Eli MD [address], [place] [address] RESP SYSTEM DISEASE NEC (Primary Dx) Social History Tobacco Use Types Packs/Day Years Used Date Smoking Tobacco: Never Assessed Comments Unknown Sex and Gender Information Value Date Recorded Sex Assigned at Not on file Legal Sex Female 3:22 AM PLANT ECOLOGIST Gender Identity Not on file Sexual Orientation Not on file documented as of this encounter Plan of Treatment Not on file documented as of this encounter Visit Diagnoses Diagnosis Other diseases of respiratory system, not elsewhere classified- Primary documented in this encounter Care Teams Specialist Managers Relationship Specialty Start Date End Date Julio Gutierrez DO [address] [place] [address] PCP - General Garden Machinery Mechanic 02/09/11 documented as of this encounter
--- OUTSIDE RECORDS SUMMARY | 2025-01-15 13:41 | XMS_ITS | Encounter Summary ---
Author Organization [facility] Address [address] [place] [address] Care Team Providers Care Shovel Logger Name Role Phone Julio Gutierrez DO Primary Care Provider [phone] Encounter Details Date Type Department Care Team (Latest Contact Info) Description 02/05/2004 Outpatient Historical [place] [address] [address] Benja Eli MD [address], [place] [id number] LUMBAR DISC DISPLACEMENT (Primary Dx) Social History Tobacco Use Types Packs/Day Years Used Date Smoking Tobacco: Never Assessed Comments Unknown Sex and Gender Information Value Date Recorded Sex Assigned at Not on file Legal Sex Female 3:22 AM WESTERN PHILOSOPHY PROFESSOR Gender Identity Not on file Sexual Orientation Not on file documented as of this encounter Plan of Treatment Not on file documented as of this encounter Visit Diagnoses Diagnosis 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
--- OUTSIDE RECORDS SUMMARY | 2025-01-15 13:41 | XMS_ITS | Encounter Summary ---
Author Organization [facility] Address [address] Attn: [place] [address] Care Team Providers Care Director Recreation Center Name Role Phone Julio Gutierrez DO Primary Care Provider [phone] Encounter Details Date Type Department Care Team (Late st Contact Info) Description 06/28/2007 Outpatient Historical Hans Castanon MD NO ADDRESS ON FILE Social History Tobacco Use Types Packs/Day Years Used Date Smoking Tobacco: Never Assessed Comments Unknown Sex and Gender Information Value Date Recorded Sex Assigned at Not on file Legal Sex Female 3:22 AM TOXICOLOGIST Gender Identity Not on file Sexual Orientation Not on file documented as of this encounter Plan of Treatment Not on file documented as of this encounter Visit Diagnoses Not on filedocumented in this encounter Care Teams Director Recreation Center Relationship Specialty Start Date End Date Julio Gutierrez DO [address] [place] [address] PCP - General Deck Engine Operator 02/09/11 documented as of this encounter
--- OUTSIDE RECORDS SUMMARY | 2025-01-15 13:41 | XMS_ITS | Encounter Summary ---
Author Organization [facility] Address [address] [place] [address] Care Team Providers Care Risk Management Analyst Name Role Phone Julio Gutierrez DO Primary Care Provider [phone] Encounter Details Date Type Department Care Team (Latest Contact Info) Description 11/15/2004 Outpatient Historical [facility] Cardiology- [place] [address] [place] [phone] Renard Lorenz MD NO ADDRESS ON FILE ANGINA PECTORIS NEC/NOS (Primary Dx); CORON ATHEROSCL [place]I CORON VESSEL Social History Tobacco Use Types Packs/Day Years Used Date Smoking Tobacco: Never Assessed Comments Unknown Sex and Gender Information Value Date Recorded Sex Assigned at Not on file Legal Sex Female 3:22 AM FRETTED INSTRUMENTS INSPECTOR Gender Identity Not on file Sexual Orientation Not on file documented as of this encounter Plan of Treatment Not on file documented as of this encounter Visit Diagnoses Diagnosis Other and unspecified angina pectoris- Primary Coronary atherosclerosis of [place] coronary artery documented in this encounter Care Teams Risk Management Analyst Relationship Specialty Start Date End Date Julio Gutierrez DO [address] [place] [address] PCP - General Content Writer 02/09/11 documented as of this encounter
--- OUTSIDE RECORDS SUMMARY | 2025-01-15 13:41 | XMS_ITS | Encounter Summary ---
Author Organization [facility] Address [address] [facility] Attn: [place] [address] Care Team Providers Care Foreign Exchange Position Clerk Name Role Phone Julio Gutierrez DO Primary Care Provider [phone] Encounter Details Date Type Department Care Team (Late st Contact Info) Description 12/31/2001 Inpatient Historical Kian Gross MD [address] [place] [address] Social History Tobacco Use Types Packs/Day Years Used Date Smoking Tobacco: Never Assessed Comments Unknown Sex and Gender Information Value Date Recorded Sex Assigned at Not on file Legal Sex Female 3:22 AM POLYMERIZATION HELPER Gender Identity Not on file Sexual Orientation Not on file documented as of this encounter Plan of Treatment Not on file documented as of this encounter Visit Diagnoses Not on filedocumented in this encounter Care Teams Foreign Exchange Position Clerk Relationship Specialty Start Date End Date Julio Gutierrez DO [address] [place] [address] PCP - General Women'S Swim Coach 02/09/11 documented as of this encounter
--- OUTSIDE RECORDS SUMMARY | 2025-01-15 13:41 | XMS_ITS | Encounter Summary ---
Author Organization [facility] Address [address] [place] [address] Care Team Providers Care Human Services Program Specialist Name Role Phone Julio Gutierrez DO Primary Care Provider [phone] Encounter Details Date Type Department Care Team (Latest Contact Info) Description 08/28/2000 Outpatient [facility] Medicine[address] [phone] Angel Clark DO NO ADDRESS ON FILE Acute bronchitis (Primary Dx) Social History Tobacco Use Types Packs/Day Years Used Date Smoking Tobacco: Never Assessed Comments Unknown Sex and Gender Information Value Date Recorded Sex Assigned at Not on file Legal Sex Female 3:22 AM INDUSTRIAL RELATIONS DIRECTOR Gender Identity Not on file Sexual Orientation Not on file documented as of this encounter Plan of Treatment Not on file documented as of this encounter Visit Diagnoses Diagnosis Acute bronchitis- Primary documented in this encounter Care Teams Human Services Program Specialist Relationship Specialty Start Date End Date Julio Gutierrez DO [address] [place] [address] PCP - General Ag Equipment Field Service Technician 02/09/11 documented as of this encounter
--- OUTSIDE RECORDS SUMMARY | 2025-01-15 13:41 | XMS_ITS | Encounter Summary ---
Author Organization [facility] Address [address] [facility] [place] [address] Care Team Providers Care Livestock Exhibitor Name Role Phone Julio Gutierrez DO Primary Care Provider Encounter Details Date Type Department Care Team (Latest Contact Info) Description 11/24/2002 Outpatient Historical [facility] Dom Shah, MARÍA NO ADDRESS ON FILE Hallux valgus (Primary Dx) Social History Tobacco Use Types Packs/Day Years Used Date Smoking Tobacco: Never Assessed Comments Unknown Sex and Gender Information Value Date Recorded Sex Assigned at Not on file Legal Sex Female 3:22 AM DISASTER RESPONSE DIRECTOR Gender Identity Not on file Sexual Orientation Not on file documented as of this encounter Plan of Treatment Not on file documented as of this encounter Visit Diagnoses Diagnosis Hallux valgus- Primary Hallux valgus (acquired) documented in this encounter Care Teams Livestock Exhibitor Relationship Specialty Start Date End Date Julio Gutierrez DO [address] [place] [address] PCP - General Harness Maker 02/09/11 documented as of this encounter
--- OUTSIDE RECORDS SUMMARY | 2025-01-15 13:41 | XMS_ITS | Encounter Summary ---
Author Organization [facility] Address [address] [place] [address] Care Team Providers Care Metal Drill Press Operator Name Role Phone Julio Gutierrez DO Primary Care Provider [phone] Encounter Details Date Type Department Care Team (Late st Contact Info) Description 05/14/2000 Outpatient Historical [facility] Gen Spec Surg [address] [address] Dallas Noble MD [address] [place] [address] Incisional hernia (Primary Dx); Follow-up examination following surgery Social History Tobacco Use Types Packs/Day Years Used Date Smoking Tobacco: Never Assessed Comments Unknown Sex and Gender Information Value Date Recorded Sex Assigned at Not on file Legal Sex Female 3:22 AM NUT ROASTER Gender Identity Not on file Sexual Orientation Not on file documented as of this encounter Plan of Treatment Not on file documented as of this encounter Visit Diagnoses Diagnosis Incisional hernia- Primary Incisional hernia without mention of obstruction or gangrene Follow-up examination following surgery documented in this encounter Care Teams Metal Drill Press Operator Relationship Specialty Start Date End Date Julio Gutierrez DO [address] [place] [address] PCP - General Scrubber System Attendant 02/09/11 documented as of this encounter
--- OUTSIDE RECORDS SUMMARY | 2025-01-15 13:41 | XMS_ITS | Encounter Summary ---
Author Organization [facility] Address [address] [facility] [place] [address] Care Team Providers Care Radio Engineering Teacher Name Role Phone Julio Gutierrez DO Primary Care Provider [phone] Encounter Details Date Type Department Care Team (Latest Contact Info) Description 11/13/2002 Outpatient Historical [facility] Dom Shah, MARÍA NO ADDRESS ON FILE Hallux valgus (Primary Dx) Social History Tobacco Use Types Packs/Day Years Used Date Smoking Tobacco: Never Assessed Comments Unknown Sex and Gender Information Value Date Recorded Sex Assigned at Not on file Legal Sex Female 3:22 AM CONSTRUCTION MILLWRIGHT Gender Identity Not on file Sexual Orientation Not on file documented as of this encounter Plan of Treatment Not on file documented as of this encounter Visit Diagnoses Diagnosis Hallux valgus- Primary Hallux valgus (acquired) documented in this encounter Care Teams Radio Engineering Teacher Relationship Specialty Start Date End Date Julio Gutierrez DO [address] [place] [address] PCP - General Harvester Operator 02/09/11 documented as of this encounter
--- OUTSIDE RECORDS SUMMARY | 2025-01-15 13:41 | XMS_ITS | Encounter Summary ---
Author Organization [facility] Address [address] [place] [address] Care Team Providers Care Machine Ii Trimmer Name Role Phone Julio Gutierrez DO Primary Care Provider [phone] Encounter Details Date Type Department Care Team (Latest Contact Info) Description 10/28/2002 Outpatient Historical [facility] Dom Shah, MARÍA NO ADDRESS ON FILE Hallux valgus (Primary Dx); CONGENITAL PES PLANUS Social History Tobacco Use Types Packs/Day Years Used Date Smoking Tobacco: Never Assessed Comments Unknown Sex and Gender Information Value Date Recorded Sex Assigned at Not on file Legal Sex Female 3:22 AM POULTRY TRIMMER Gender Identity Not on file Sexual Orientation Not on file documented as of this encounter Plan of Treatment Not on file documented as of this encounter Visit Diagnoses Diagnosis Hallux valgus- Primary Hallux valgus (acquired) Congenital pes planus documented in this encounter Care Teams Machine Ii Trimmer Relationship Specialty Start Date End Date Julio Gutierrez DO [address] [place] [address] PCP - General Review Consultant 02/09/11 documented as of this encounter
--- OUTSIDE RECORDS SUMMARY | 2025-01-15 13:41 | XMS_ITS | Encounter Summary ---
Author Organization [facility] Address [address] [place] [address] Care Team Providers Care Bug Trimmer Name Role Phone Julio Gutierrez DO Primary Care Provider [phone] Encounter Details Date Type Department Care Team (Late st Contact Info) Description 04/20/2000 Outpatient Historical [facility] Gen Spec Surg [address] [address] Dallas Noble MD [address] [place] [address] Incisional hernia (Primary Dx); Follow-up examination following surgery Social History Tobacco Use Types Packs/Day Years Used Date Smoking Tobacco: Never Assessed Comments Unknown Sex and Gender Information Value Date Recorded Sex Assigned at Not on file Legal Sex Female 3:22 AM CONSTRUCTION SUPERINTENDENT Gender Identity Not on file Sexual Orientation Not on file documented as of this encounter Plan of Treatment Not on file documented as of this encounter Visit Diagnoses Diagnosis Incisional hernia- Primary Incisional hernia without mention of obstruction or gangrene Follow-up examination following surgery documented in this encounter Care Teams Bug Trimmer Relationship Specialty Start Date End Date Julio Gutierrez DO [address] [place] [address] PCP - General State Manager 02/09/11 documented as of this encounter
--- OUTSIDE RECORDS SUMMARY | 2025-01-15 13:41 | XMS_ITS | Encounter Summary ---
Author Organization [facility] Address [address] [place] [address] Care Team Providers Care Meat Cooler Name Role Phone Julio Gutierrez DO Primary Care Provider [phone] Encounter Details Date Type Department Care Team (Late st Contact Info) Description 02/20/2002 Outpatient Historical [facility] Khari Franz MD [address] [place] [address] CHRONIC AIRWAY OBSTRUCTION NEC (CMS/HCC) (Primary Dx); ASPHYXIA Social History Tobacco Use Types Packs/Day Years Used Date Smoking Tobacco: Never Assessed Comments Unknown Sex and Gender Information Value Date Recorded Sex Assigned at Not on file Legal Sex Female 3:22 AM NEUROPATHOLOGIST Gender Identity Not on file Sexual Orientation Not on file documented as of this encounter Plan of Treatment Not on file documented as of this encounter Visit Diagnoses Diagnosis Chronic airway obstruction, not elsewhere classified (CMS/HCC)- Primary Chronic airway obstruction, not elsewhere classified Asphyxia and hypoxemia documented in this encounter Care Teams Meat Cooler Relationship Specialty Start Date End Date Julio Gutierrez DO [address] [place] [address] PCP - General Cloth Boil Off Machine Operator 02/09/11 documented as of this encounter
--- OUTSIDE RECORDS SUMMARY | 2025-01-15 13:41 | XMS_ITS | Encounter Summary ---
Author Organization [facility] Address [address] [place] [address] Care Team Providers Care Graphic Design Intern Name Role Phone Julio Gutierrez DO Primary Care Provider [phone] Encounter Details Date Type Department Care Team (Latest Contact Info) Description 08/10/2004 Outpatient Historical [facility] Orthopedics- [address] [place] [address] Kian Marie MD [address] [place] [address] MALF INT ORTHPED DEV/GRF (Primary Dx) Social History Tobacco Use Types Packs/Day Years Used Date Smoking Tobacco: Never Assessed Comments Unknown Sex and Gender Information Value Date Recorded Sex Assigned at Not on file Legal Sex Female 3:22 AM AUTOMOTIVE INSTRUCTOR Gender Identity Not on file Sexual Orientation Not on file documented as of this encounter Plan of Treatment Not on file documented as of this encounter Visit Diagnoses Diagnosis Mechanical complication of internal orthopedic device, implant, and graft- Primary documented in this encounter Care Teams Graphic Design Intern Relationship Specialty Start Date End Date Julio Gutierrez DO [address] [place] [address] PCP - General Ram Press Operator 02/09/11 documented as of this encounter
--- OUTSIDE RECORDS SUMMARY | 2025-01-15 13:41 | XMS_ITS | Encounter Summary ---
Author Organization [facility] Address [address] [place] [address] Care Team Providers Care Permastone Mechanic Name Role Phone Julio Gutierrez DO Primary Care Provider [phone] Encounter Details Date Type Department Care Team (Latest Contact Info) Description 02/10/2003 Outpatient Historical [facility] Cardiology- [place] [address] [place] [phone] Marianna Rios, CANAL BOAT CAPTAIN NO ADDRESS ON FILE CORON ATHEROSCL TORRES MARTINEZ CORON VESSEL (Primary Dx); Pure hypercholesterolem Social History Tobacco Use Types Packs/Day Years Used Date Smoking Tobacco: Never Assessed Comments Unknown Sex and Gender Information Value Date Recorded Sex Assigned at Not on file Legal Sex Female 3:22 AM RETAIL SERVICE LEAD MERCHANDISER Gender Identity Not on file Sexual Orientation Not on file documented as of this encounter Plan of Treatment Not on file documented as of this encounter Visit Diagnoses Diagnosis Coronary atherosclerosis of [place] coronary artery- Primary Pure hypercholesterolem Pure hypercholesterolemia documented in this encounter Care Teams Permastone Mechanic Relationship Specialty Start Date End Date Julio Gutierrez DO [address] [place] [address] PCP - General Cryptological Technician 02/09/11 documented as of this encounter
--- OUTSIDE RECORDS SUMMARY | 2025-01-15 13:41 | XMS_ITS | Encounter Summary ---
Author Organization [facility] Address [address] [place] [address] Care Team Providers Care Window Clerk Name Role Phone Julio Gutierrez DO Primary Care Provider [phone] Encounter Details Date Type Department Care Team (Latest Contact Info) Description 05/26/2002 Outpatient [facility] [address] [place] [phone] Benja Eli MD [address] [place], [place] [address] CHEST PAIN NOS (Primary Dx) Social History Tobacco Use Types Packs/Day Years Used Date Smoking Tobacco: Never Assessed Comments Unknown Sex and Gender Information Value Date Recorded Sex Assigned at Not on file Legal Sex Female 3:22 AM CINDER SNAPPER Gender Identity Not on file Sexual Orientation Not on file documented as of this encounter Plan of Treatment Not on file documented as of this encounter Visit Diagnoses Diagnosis Chest pain, unspecified- Primary documented in this encounter Care Teams Window Clerk Relationship Specialty Start Date End Date Julio Gutierrez DO [address] [place] [address] PCP - General Pit Slagman 02/09/11 documented as of this encounter
--- OUTSIDE RECORDS SUMMARY | 2025-01-15 13:41 | XMS_ITS | Encounter Summary ---
Author Organization [facility] Address [address] [place] [address] Care Team Providers Care Coutierier Name Role Phone Julio Gutierrez DO Primary Care Provider [phone] Encounter Details Date Type Department Care Team (Latest Contact Info) Description 03/26/2000 Outpatient Historical [address] [phone] Angel Clark DO NO ADDRESS ON FILE Pain in thoracic spine (Primary Dx); Pain in joint, shoulder region Social History Tobacco Use Types Packs/Day Years Used Date Smoking Tobacco: Never Assessed Comments Unknown Sex and Gender Information Value Date Recorded Sex Assigned at Not on file Legal Sex Female 3:22 AM CLAIM ADMINISTRATOR Gender Identity Not on file Sexual Orientation Not on file documented as of this encounter Plan of Treatment Not on file documented as of this encounter Visit Diagnoses Diagnosis Pain in thoracic spine- Primary Pain in joint, shoulder region documented in this encounter Care Teams Coutierier Relationship Specialty Start Date End Date Julio Gutierrez DO [address] [place] [address] PCP - General Upholsterer Helper 02/09/11 documented as of this encounter
--- OUTSIDE RECORDS SUMMARY | 2025-01-15 13:41 | XMS_ITS | Encounter Summary ---
Author Organization [facility] Address [address] [place] [address] Care Team Providers Care Insurance Sales Professional Name Role Phone Julio Gutierrez DO Primary Care Provider Encounter Details Date Type Department Care Team (Latest Contact Info) Description 11/13/2003 Outpatient Historical [facility] Orthopedics- [address] [place] [phone] Kian Marie MD [address] [place] [address] FX BIMALLEOLAR-CLOSED (Primary Dx) Social History Tobacco Use Types Packs/Day Years Used Date Smoking Tobacco: Never Assessed Comments Unknown Sex and Gender Information Value Date Recorded Sex Assigned at Not on file Legal Sex Female 3:22 AM RFID ENGINEER Gender Identity Not on file Sexual Orientation Not on file documented as of this encounter Plan of Treatment Not on file documented as of this encounter Visit Diagnoses Diagnosis Closed bimalleolar fracture- Primary documented in this encounter Care Teams Insurance Sales Professional Relationship Specialty Start Date End Date Julio Gutierrez DO [address] [place] [address] PCP - General Automatic Drilling Machine Operator 02/09/11 documented as of this encounter
--- OUTSIDE RECORDS SUMMARY | 2025-01-15 13:41 | XMS_ITS | Encounter Summary ---
Author Organization [facility] Address [address] [place] [address] Care Team Providers Care Cart Driver Name Role Phone Julio Gutierrez DO Primary Care Provider [phone] Encounter Details Date Type Department Care Team (Late st Contact Info) Description 07/31/2002 Outpatient Historical [facility] Khari Franz MD [address] [place] [address] CHRONIC AIRWAY OBSTRUCTION NEC (CMS/HCC) (Primary Dx); RESPIRATORY ABNORM NEC Social History Tobacco Use Types Packs/Day Years Used Date Smoking Tobacco: Never Assessed Comments Unknown Sex and Gender Information Value Date Recorded Sex Assigned at Not on file Legal Sex Female 3:22 AM IMPORT EXPORT COORDINATOR Gender Identity Not on file Sexual Orientation Not on file documented as of this encounter Plan of Treatment Not on file documented as of this encounter Visit Diagnoses Diagnosis Chronic airway obstruction, not elsewhere classified (CMS/HCC)- Primary Chronic airway obstruction, not elsewhere classified Other dyspnea and respiratory abnormality documented in this encounter Care Teams Cart Driver Relationship Specialty Start Date End Date Julio Gutierrez DO [address] [place] [address] PCP - General Mangle Catcher 02/09/11 documented as of this encounter
--- OUTSIDE RECORDS SUMMARY | 2025-01-15 13:41 | XMS_ITS | Encounter Summary ---
Author Organization [facility] Address [address] [place] [address] Care Team Providers Care Sewer Pipe Press Operator Name Role Phone Julio Gutierrez DO Primary Care Provider [phone] Encounter Details Date Type Department Care Team (Latest Contact Info) Description 12/19/2002 Outpatient Historical [facility] Dom Shah, MARÍA NO ADDRESS ON FILE Hallux valgus (Primary Dx); AFCARE FOL SURG OF MUSCULOSK SYS, NEC Social History Tobacco Use Types Packs/Day Years Used Date Smoking Tobacco: Never Assessed Comments Unknown Sex and Gender Information Value Date Recorded Sex Assigned at Not on file Legal Sex Female 3:22 AM SANE RN Gender Identity Not on file Sexual Orientation Not on file documented as of this encounter Plan of Treatment Not on file documented as of this encounter Visit Diagnoses Diagnosis Hallux valgus- Primary Hallux valgus (acquired) Aftercare following surgery of the musculoskeletal system, NEC documented in this encounter Care Teams Sewer Pipe Press Operator Relationship Specialty Start Date End Date Julio Gutierrez DO [address] [place] [address] PCP - General Dental Chair Assembler 02/09/11 documented as of this encounter
--- OUTSIDE RECORDS SUMMARY | 2025-01-15 13:41 | XMS_ITS | Encounter Summary ---
Author Organization [facility] Address [address] [place] [address] Care Team Providers Care Sound System Installer Name Role Phone Julio Gutierrez DO Primary Care Provider [phone] Encounter Details Date Type Department Care Team (Latest Contact Info) Description 09/22/2004 Outpatient Historical [facility] Cardiology- [place] [address] [place] [phone] Marianna Rios, DEGREASER OPERATOR NO ADDRESS ON FILE ANGINA PECTORIS NEC/NOS (Primary Dx); CORON ATHEROSCL [facility] CORON VESSEL; Pure hypercholesterolem Social History Tobacco Use Types Packs/Day Years Used Date Smoking Tobacco: Never Assessed Comments Unknown Sex and Gender Information Value Date Recorded Sex Assigned at Not on file Legal Sex Female 3:22 AM COMMUNICATIONS EXECUTIVE Gender Identity Not on file Sexual Orientation Not on file documented as of this encounter Plan of Treatment Not on file documented as of this encounter Visit Diagnoses Diagnosis Other and unspecified angina pectoris- Primary Coronary atherosclerosis of [place] coronary artery Pure hypercholesterolem Pure hypercholesterolemia documented in this encounter Care Teams Sound System Installer Relationship Specialty Start Date End Date Julio Gutierrez DO [address] [place] [address] PCP - General Nut Chopper 02/09/11 documented as of this encounter
--- OUTSIDE RECORDS SUMMARY | 2025-01-15 13:41 | XMS_ITS | Clinical Summary ---
Author Organization [facility] Address [address] [place] [address] Care Team Providers Care Jewelry Facer Name Role Phone Julio Gutierrez Primary Care Provider [phone] Allergies Active Allergy Reactions Criticality Noted Date Comments Codeine Nausea and Vomiting Low 07/26/2009 Loratadine Unknown 07/26/2009 Does not remember reaction Niacin Hives,Swelling High 08/20/2009 throat swelled had trouble breathing ,hives Penicillins Hives High 07/26/2009 Medications enalapril (VASOTEC) 20 mg Oral tablet Take 1 Tab by mouth daily. 90 Tab 3 08/01/19 11 Active Additional Information Patient taking differently:20 mg OralTWO TIMES DAILY, Reported on 01/09/2018 gabapentin (NEURONTIN) 300 mg Oral capsuleIndications:T horacic or lumbosacral neuritis or radiculitis, unspecified,Lumbago, Postlaminectomy syndrome, lumbar region,Lumbosacral spondylosis without myelopathy Take 1 Cap by mouth 3 times daily. 90 Cap 0 06/14/19 12 Active diphenhydrAMINE-acet aminophen (TYLENOL PM EXTRA STRENGTH) 25-500 mg Oral TabIndications:Lumba r radiculopathy,Lumbar pain Take 2 Tabs by mouth nightly as needed. Active fenofibrate nanocrystallized (TRICOR) 145 mg Oral tablet Take 1 Tab by mouth daily. 30 Tab 11 09/15/19 12 Active ALPRAZolam (XANAX) 0.25 mg tablet Take 0.25 mg by mouth 3 times daily as needed for Anxiety. Active varenicline (CHANTIX) 0.5 mg TabletIndications:At herosclerosis of both carotid arteries Take 0.5 mg by mouth 2 times daily. Active cyanocobalamin (VITAMIN B-12) 100 mcg tablet Take 100 mcg by mouth daily. Active escitalopram oxalate (LEXAPRO) 10 mg tablet Take 10 mg by mouth daily at bedtime. Active aspirin (ARCADIO CHEWABLE) 81 mg Tablet, ChewableIndications: Acute ischemic stroke (CMS/HCC),Left carotid stenosis Take 1 Tablet (81 mg) by mouth daily with breakfast. 02/10/20 18 Active atorvastatin (LIPITOR) 40 mg tablet Take 1 Tablet (40 mg) by mouth late in the day. 90 Tablet 3 03/26/20 18 Active nitroglycerin (NITROSTAT) 0.4 mg Tablet, Sublingual Place 1 Tablet (0.4 mg) under tongue every 5 minutes as needed for Chest Pain Not to exceed 3 tabs in 15 minutes, if not relieved go to ER or call 911.. 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 Active cyclobenzaprine (FLEXERIL) 10 mg tablet Take 10 mg by mouth daily. Active ergocalciferol, vitamin D2, (VITAMIN D ORAL) Take by mouth. 400 IU Active omeprazole (PriLOSEC) 10 mg Capsule, Delayed Release(E.C.) Take 10 mg by mouth daily. Active metoprolol tartrate (LOPRESSOR) 50 mg tablet Take 1 Tablet (50 mg) by mouth 2 times daily. 180 Tablet 3 09/14/19 21 Active Active Problems Problem Noted Date Diagnosed Date History of hepatitis C 02/07/2018 History of coronary artery bypass graft 01/24/20 18 Cerebrovascular disease 12/19/2017 Acute blood loss anemia 12/18/2016 Old [place] (myocardial infarction) 12/18/2016 Left carotid stenosis - extracranial 12/18/2016 Overview (12/18/2016): CTA December 2016- severe range Acute intestinal ischemia 12/14/2016 Acute renal failure 12/14/2016 ASHD (arteriosclerotic heart disease) 06/24/2009 Overview (09/04/2009): April 1999 - coronary angiography for evaluation of unstable angina by Dr Marsh reveals the RCA to be 95% stenosis. The left main was widely patent. The LAD had a 25% proximal narrowing followed by a separate 40-50% stenosis in the mid vessel. The distal LAD had only mild plaque. The circumflex was widely patent. A 3.5 x 18 mm duet stent was deployed to the mid RCA. December 2002 - coronary angiography for evaluation of unstable angina by Dr. Lorenz revealed the LAD to have a 98% proximal stenosis. The RCA stented area was widely patent. LV EF 50%. A 3.0 x 13 mm Cypher was deployed to the LAD. September 2004 - coronary angiography for evaluation of chest pain reveals coronary artery disease. Previous extensive areas of the LAD and RCA were widely patent. June 2007 - coronary angiography for evaluation of chest pain reveals multivessel severe CAD. The patient subsequently underwent CABG utilizing reverse SVG/RCA, reverseSPG/diagonal, reverse SVG/circumflex x2, and SALINAS/LAD. 08/2009 - Nuclear ST: 1. This study shows a relatively fixed perfusion abnormality in the lateral wall that extends from the level of the mid ventricle towards the base. In light of this patient's history of coronary heart disease, an area of myocardial hibernation or scar in the lateral wall cannot be absolutely excluded, but interestingly, there is no associated regional wall motion abnormality in this same area. Thus, tissue attenuation artifact in the lateral wall is also possible. Clinical correlation would be helpful. 2. Normal global left ventricular systolic function with a calculated left ventricular ejection fraction of 55%. No left ventricular regional wall motion abnormalities are detected. After review of the spiral images, there does appear to be evidence of significant breast tissue attenuation. Thus, the fixed perfusion abnormality in the lateral wall without an associated regional wall motion abnormality may be more likely from tissue attenuation artifact. Essential hypertension, benign 06/24/2009 Mixed hyperlipidemia 06/24/2009 Overview (11/06/2011): August 2010 - total cholesterol 220, triglycerides 466, HDL 26, AST 11 ALT 09 Oct 2010 - total cholesterol 233, triglycerides 102, HDL 54 and LDL 159 10/2011 - total cholesterol 161, triglycerides 141, HDL 35 and LDL 98, AST - 14, ALT - 8 COPD (chronic obstructive pulmonary disease) Tobacco abuse 06/24/2009 History of stroke Resolved Problems Problem Noted Date Diagnosed Date Resolved Date Angina, class III 02/08/2018 04/01/2018 Acute abdomen 12/14/2016 04/01/2018 Immunizations Immunization Administration Dates Next Due (PNEUMOVAX 23)(50 YRS UP) PN EUMOCOCCAL POLYSACCHARIDE (PPV23) 0.5 ML, IM 02/20/2002 Social History Tobacco Use Types Packs/Day Years Used Date Smoking Tobacco: Every Day Cigarettes 1 25 Smokeless Tobacco: Never Tobacco Cessation:Ready to Q uit: Yes; Counseling Given: Yes Comments:Currently smokes 1 ppd, taking Chantix. 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 Gender Identity Not on file Sexual Orientation Not on file Last Filed Vital Signs Vital Sign Reading Time Taken Comments Blood Pressure 122/64 02/04/2020 11:00 AM CDT Pulse 64 02/04/2020 11:00 AM CDT Temperature 36.4 C (97.6 F) 02/09/2018 4:00 AM CDT Respiratory Rate 14 02/09/2018 4:00 AM CDT Oxygen Saturation 90% 02/09/2018 4:00 AM CDT Inhaled Oxygen Concentration - - Weight 70.3 kg (155 lb) 02/04/2020 11:00 AM CDT Height 157.5 cm (5' 2 ) 02/04/2020 11:00 AM CDT Body Mass Index 28.35 02/04/2020 11:00 AM CDT Plan of Treatment Health Maintenance Due Date Last Done Comments DTAP/TDAP/TD VACCINES (1 - Tdap) 1974 BREAST CANCER SCREENING 1995 COLORECTAL SCREENING 2000 Colorectal Cancer Screening 2000 FIT-DNA Q 3 years 2000 FIT/FOBT Q 1 year 2000 Flex Sig/CT Colonography Q 5 years 2000 PNEUMOCOCCAL VACCINE 50+ YEARS (2 of 2 - PCV) 02/21/20 03 02/20/2002 ZOSTER VACCINE (1 of 2) 2005 RSV VACCINE (60+ or ) (1 - Risk 60-74 years 1-dose series) 2015 OSTEOPOROSIS SCREENING 2020 INFLUENZA VACCINE (#1) 2025 Medical Devices Implanted Type Area Legal Advisor Device Identifier Shelf Expiration Date Model / Serial / Lot Acculink [id number] /2017 Implanted:12/20 (Quantity not on file) Stent Stent-02/08/2018 Implanted:02/08 (Quantity not on file) Stent [id number] 04/23/2019 / / [id number] Explanted Type Area Legal Advisor Device Identifier Shelf Expiration Date Model / Serial / Lot Previous Mesh Explanted:Qty: 1 on 12/14/2016 at [facility] Mesh Description:Unknown manufact urer and catalog number. Implanted in another institution. Insurance [employer] [place] [employer] [id number] HMO Advance Directives For more information, please contact: [phone] * Full Code (Latest Code Status on File) Date Activated Date Inactivated Comments 02/08/2018 12:49 PM 02/09/2018 2:44 PM * Full Code Date Activated Date Inactivated Comments 02/08/2018 8:24 AM 02/08/2018 12:49 PM * Full Code Date Activated Date Inactivated Comments 12/15/2016 2:29 AM 12/24/2016 3:28 PM * Full Code Date Activated Date Inactivated Comments 12/14/2016 11:50 PM 12/15/2016 2:29 AM * Full Code Date Activated Date Inactivated Comments 10/21/2010 1:14 PM 10/21/2010 9:33 PM Care Teams Jewelry Facer Relationship Specialty Start Date End Date Julio Gutierrez DO [address] [place] [address] PCP - General Continuity Writer 02/09/11
--- OUTSIDE RECORDS SUMMARY | 2025-01-15 13:42 | XMS_ITS | Encounter Summary ---
Author Organization [facility] Address [address] [place] [address] Care Team Providers Care Historian Dramatic Arts Name Role Phone Julio Gutierrez DO Primary Care Provider [phone] Encounter Details Date Type Department Care Team (Latest Contact Info) Description 12/28/1998 Outpatient Historical [facility] [address] [place] [phone] Lavonne Paez MD [address] [place] [address] Lumbago (Primary Dx); Depressive disorder, not elsewhere classified Social History Tobacco Use Types Packs/Day Years Used Date Smoking Tobacco: Never Assessed Comments Unknown Sex and Gender Information Value Date Recorded Sex Assigned at Not on file 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
--- OUTSIDE RECORDS SUMMARY | 2025-01-15 13:42 | XMS_ITS | Clinical Summary ---
Author Organization [facility] Address [address] Attn: [place] [address] Care Team Providers Care Grader Meat Name Role Phone Matthew Barr MD Primary Care Provider Allergies Active Allergy Reactions Criticality Noted Date Comments Codeine Nausea and Vomiting Low 07/26/2009 Loratadine Unknown 07/26/2009 Does not remember reaction Niacin Hives,Swelling High 08/20/2009 throat swelled had trouble breathing ,hives Penicillins Hives High 07/26/2009 Medications cyanocobalamin (VITAMIN B-12) 100 mcg tablet Take 100 mcg by mouth daily. 12/20/19 18 Active escitalopram oxalate (LEXAPRO) 10 mg tablet Take 10 mg by mouth daily at bedtime. 02/09/20 18 Active aspirin (ARCADIO CHEWABLE) 81 mg Tablet, ChewableIndications: Acute ischemic stroke (CMS/HCC),Left carotid stenosis Take 1 Tablet (81 mg) by mouth daily with breakfast. 02/10/20 18 Active isosorbide mononitrate (IMDUR) 30 mg Extended Release 24 hour tablet Take 30 mg by mouth daily rn home health. 02/04/20 20 Active omeprazole (PriLOSEC) 10 mg Capsule, Delayed Release(E.C.) Take 10 mg by mouth daily. 02/04/20 20 Active atorvastatin (LIPITOR) 40 mg tablet Take 1 Tablet (40 mg) by mouth late in the day. 90 Tablet 3 03/26/20 18 Active ergocalciferol, vitamin D2, (VITAMIN D ORAL) Take by mouth. 400 IU 02/04/20 20 Active FENOFIBRATE NANOCRYSTALLIZED ORAL Take by mouth. Activ e nitroglycerin (NITROSTAT) 0.4 mg Tablet, Sublingual Place 1 Tablet (0.4 mg) under tongue every 5 minutes as needed for Chest Pain. 25 Tablet 3 02/10/20 21 Active amLODIPine (NORVASC) 5 mg tablet Take 1 Tablet (5 mg) by mouth daily. 90 Tablet 3 02/18/20 21 Active cyclobenzaprine (FLEXERIL) 10 mg tablet 11/09/19 22 Active enalapril (VASOTEC) 20 mg tablet Take 20 mg by mouth 2 times daily. 11/09/19 22 Active Belsomra 20 mg Tablet 11/12/19 22 Active ALPRAZolam (XANAX) 0.25 mg tablet Take 0.25 mg by mouth 3 times daily as needed for Anxiety. 12/15/19 17 Active Cholecalciferol, Vitamin D3, 50 mcg (2,000 unit) Capsule Take by mouth. Active MAGNESIUM OXIDE ORAL Take by mouth. Active OTHER Provider please include Medication name, dose, route and frequency Active ACETAMINOPHEN ORAL Take by mouth. Active metoprolol succinate (Toprol XL) 50 mg Extended Release 24 hour tabletIndications: HD (arteriosclerotic heart disease),Essential hypertension, benign Take 1 Tablet (50 mg) by mouth 2 times daily. Hold for a BP less than 100 or a heart rate less than 60 90 Tablet 3 05/03/20 23 Active Active Problems Problem Noted Date Diagnosed Date Dyspnea on exertion 02/16/2021 Palpitations 02/16/2021 Tachycardia 02/16/2021 Hypomagnesemia 02/16/2021 Hypokalemia 02/16/2021 Elevated troponin 02/16/2021 Chronic kidney disease 02/16/2021 Unstable angina 02/15/2021 Overview (02/16/2021): Added automatically from request for surgery [id number] History of hepatitis C 02/07/2018 History of coronary artery bypass graft 01/24/20 18 Cerebrovascular disease 12/19/2017 Old [place] (myocardial infarction) 12/18/2016 Acute blood loss anemia 12/18/2016 Left carotid stenosis - extracranial 12/18/2016 Overview (09/30/2020): CTA December 2016- severe range Acute intestinal ischemia 12/14/2016 Acute renal failure 12/14/2016 Essential hypertension, benign 06/24/2009 Tobacco abuse 06/24/2009 ASHD (arteriosclerotic heart disease) 06/24/2009 Overview (09/30/2020): April 1999 - coronary angiography for evaluation [...] be more likely from tissue attenuation artifact. COPD (chronic obstructive pulmonary disease) Mixed hyperlipidemia 06/24/2009 Overview (09/30/2020): August 2010 - total cholesterol 220, triglycerides 466, HDL 26, AST 11 ALT 09 Oct 2010 - total cholesterol 233, triglycerides 102, HDL 54 and LDL 159 10/2011 - total cholesterol 161, triglycerides 141, HDL 35 and LDL 98, AST - 14, ALT - 8 History of stroke Resolved Problems Problem Noted Date Diagnosed Date Resolved Date Angina, class III 02/08/2018 04/01/2018 Acute abdomen 12/14/2016 04/01/2018 Encounters Date Type Department Care Team Description 01/12/2025 Orders Only [facility] [place] [address] [place] [address] Baldomero Mckinney NP Bilateral carotid artery stenosis (Primary Dx) from Last 3 Months Immunizations Immunization Administration Dates Next Due (PNEUMOVAX 23)(50 YRS UP) PN EUMOCOCCAL POLYSACCHARIDE (PPV23) 0.5 ML, IM 02/20/2002 Family History Medical History Relation Name Comments Heart Disease Brother Heart Disease Daughter 1 CAD. History o f coronary stents. No Known Problems Daughter 2 No Known Problems Daughter 3 No Known Problems Daughter 4 Other Father in car acc ident. Unknown Father Diabetes Mother Hypertension Mother Other Mother of cerebra l hemorrhage. 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 Gender Identity Not on file Sexual Orientation Not on file Last Filed Vital Signs Vital Sign Reading Time Taken Comments Blood Pressure 124/66 12/28/2023 10:24 AM CDT Pulse 72 12/28/2023 10:24 AM CDT Temperature 36.5 C (97.7 F) 02/17/2021 10:16 AM CDT Respiratory Rate 12 02/17/2021 10:16 AM CDT Oxygen Saturation 93% 12/28/2023 10:24 AM CDT Inhaled Oxygen Concentration - - Weight 49 kg (108 lb) 12/28/2023 10:24 AM CDT Height 157.5 cm (5' 2 ) 03/12/2023 3:13 PM CDT Body Mass Index 19.75 03/12/2023 3:13 PM CDT Plan of Treatment Upcoming Encounters Date Type Department Care Team (Late st Contact Info) Description 03/04/2025 12:00 PM CDT Ancillary Procedure [facility] [place] [address] [place] [address] Baldomero Mckinney NP [address] [place] [address] 03/04/2025 1:00 PM CDT Office Visit [facility] [place] [address] [place] [address] Baldomero Mckinney NP [address] [place] [address] Health Maintenance Due Date Last Done Comments [...] (#1) 2025 Medical Devices Implanted Type Area Baseball Umpire [employer] Device Identifier Shelf Expiration Date Model / Serial / Lot Acculink [id number] /2017 Implanted:12/20 (Quantity not on file) Stent Stent-02/08/2018 Implanted:02/08 (Quantity not on file) Stent [id number] 04/23/2019 / / [id number] Explanted Type Area Baseball Umpire [employer] Device Identifier Shelf Expiration Date Model / Serial / Lot Previous Mesh Explanted:Qty: 1 on 12/14/2016 Mesh Description:Unknown manufact urer and catalog number. Implanted in another institution. Insurance [facility] [id number] Advance Directives For more information, please contact: [phone] * Full Code (Latest Code Status on File) Date Activated Date Inactivated Comments 02/17/2021 9:36 AM 02/17/2021 6:36 PM * Full Code Date Activated Date Inactivated Comments 02/15/2021 11:56 PM 02/17/2021 9:36 AM Care Teams Grader Meat Relationship Specialty Start Date End Date Matthew Barr MD [address] [place] [phone] PCP - General Family Practice 10/19/21
--- OUTSIDE RECORDS SUMMARY | 2025-01-15 13:42 | XMS_ITS | Encounter Summary ---
Author Organization [facility] Address [address] [place] [address] Care Team Providers Care Svp Digital Ad Sales Name Role Phone Julio Gutierrez DO Primary Care Provider [phone] Encounter Details Date Type Department Care Team (Latest Contact Info) Description 12/08/[address] 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
--- OUTSIDE RECORDS SUMMARY | 2025-01-15 13:42 | XMS_ITS | Encounter Summary ---
Author Organization [facility] Address [address] [place] [address] Care Team Providers Care Fish Hatchery Assistant Name Role Phone Julio Gutierrez DO Primary Care Provider [phone] Encounter Details Date Type Department Care Team (Latest Contact Info) Description 06/30/1999 Outpatient Historical [facility]- [place] [address] [place] [phone] Renard Lorenz MD NO ADDRESS ON FILE Coronary atherosclerosis of [place] coronary artery (Primary Dx); Precordial pain Social History Tobacco Use Types Packs/Day Years Used Date Smoking Tobacco: Never Assessed Comments Unknown Sex and Gender Information Value Date Recorded Sex Assigned at Not on file 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
--- OUTSIDE RECORDS SUMMARY | 2025-01-15 13:42 | XMS_ITS | Encounter Summary ---
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
--- OUTSIDE RECORDS SUMMARY | 2025-01-15 13:42 | XMS_ITS | Encounter Summary ---
Author Organization [facility] Address [address] [place] [address] Care Team Providers Care Bowling Ball Finisher Name Role Phone Julio Gutierrez DO Primary Care Provider [phone] Encounter Details Date Type Department Care Team (Latest Contact Info) Description 07/18/1999 Outpatient Historical [facility] Cardiology [facility] [address] [place] [phone] Teddy Dickey MD NO ADDRESS ON FILE Coronary atherosclerosis of unga coronary artery (Primary Dx) Social History Tobacco Use Types Packs/Day Years Used Date Smoking Tobacco: Never Assessed Comments Unknown Sex and Gender Information Value Date Recorded Sex Assigned at Not on file 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
--- OUTSIDE RECORDS SUMMARY | 2025-01-15 13:42 | XMS_ITS | Encounter Summary ---
Author Organization [facility] Address [address] [place] [address] Care Team Providers Care Doughmaker Name Role Phone Julio Gutierrez DO Primary Care Provider [phone] Encounter Details Date Type Department Care Team (Latest Contact Info) Description 07/09/1998 Outpatient Historical [facility] [address] [place] [address] Lavonne Paez MD [address] [place] [phone] Cervicalgia (Primary Dx); Lumbago Social History Tobacco Use Types Packs/Day Years Used Date Smoking Tobacco: Never Assessed Comments Unknown Sex and Gender Information Value Date Recorded Sex Assigned at Not on file Legal Sex Female 3:[address] INTERPRETER Gender Identity Not on file Sexual Orientation Not on file documented as of this encounter Plan of Treatment Not on file documented as of this encounter Visit Diagnoses Diagnosis Cervicalgia- Primary Lumbago documented in this encounter Care Teams Doughmaker Relationship Specialty Start Date End Date Julio Gutierrez DO [address] [place] [address] PCP - General Transportation Worker 02/09/11 documented as of this encounter
--- OUTSIDE RECORDS SUMMARY | 2025-01-15 13:42 | XMS_ITS | Encounter Summary ---
Author Organization [facility] Address [address] [place] [address] Care Team Providers Care Multifold Operator Name Role Phone Julio Gutierrez DO Primary Care Provider Encounter Details Date Type Department Care Team (Latest Contact Info) Description 06/08/1998 Outpatient Historical [facility] [address] [place] [address] Lavonne Paez MD [address] [place] [phone] Lumbago (Primary Dx); Other ovarian failure Social History Tobacco Use Types Packs/Day Years Used Date Smoking Tobacco: Never Assessed Comments Unknown Sex and Gender Information Value Date Recorded Sex Assigned at Not on file Legal Sex Female 3:22 AM FAMILY PRACTICE NURSE PRACTITIONER Gender Identity Not on file Sexual Orientation Not on file documented as of this encounter Plan of Treatment Not on file documented as of this encounter Visit Diagnoses Diagnosis Lumbago- Primary Other ovarian failure documented in this encounter Care Teams Multifold Operator Relationship Specialty Start Date End Date Julio Gutierrez DO [address] [place] [address] PCP - General Vision Specialist 02/09/11 documented as of this encounter
--- OUTSIDE RECORDS SUMMARY | 2025-01-15 13:42 | XMS_ITS | Encounter Summary ---
Author Organization [facility] Address [address] [place] [address] Care Team Providers Care Livestock Exhibitor Name Role Phone Julio Gutierrez DO Primary Care Provider [phone] Encounter Details Date Type Department Care Team (Latest Contact Info) Description 05/06/1999 Outpatient Historical [facility] [address] [place] [address] Lavonne Paez MD [address] [place] [address] Other malaise and fatigue (Primary Dx); Urinary tract infection, site not specified Social History Tobacco Use Types Packs/Day Years Used Date Smoking Tobacco: Never Assessed Comments Unknown Sex and Gender Information Value Date Recorded Sex Assigned at Not on file Legal Sex Female 3:22 AM OPAL MINER Gender Identity Not on file Sexual Orientation Not on file documented as of this encounter Plan of Treatment Not on file documented as of this encounter Visit Diagnoses Diagnosis Other malaise and fatigue- Primary Urinary tract infection, site not specified documented in this encounter Care Teams Livestock Exhibitor Relationship Specialty Start Date End Date Julio Gutierrez DO [address] [place] [address] PCP - General Director Of Land Acquisition 02/09/11 documented as of this encounter
--- OUTSIDE RECORDS SUMMARY | 2025-01-15 13:42 | XMS_ITS | Encounter Summary ---
Author Organization [facility] Address [address] [place] [address] Care Team Providers Care Television Repairman Name Role Phone Julio Gutierrez DO Primary Care Provider [phone] Encounter Details Date Type Department Care Team (Latest Contact Info) Description 11/07/1999 Outpatient Historical [facility] [address] [place] [phone] Lavonne Paez MD [address] [place] [address] Calcaneal spur (Primary Dx) Social History Tobacco Use Types Packs/Day Years Used Date Smoking Tobacco: Never Assessed Comments Unknown Sex and Gender Information Value Date Recorded Sex Assigned at Not on file Legal Sex Female 3:22 AM METAL FABRICATOR HELPER Gender Identity Not on file Sexual Orientation Not on file documented as of this encounter Plan of Treatment Not on file documented as of this encounter Visit Diagnoses Diagnosis Calcaneal spur- Primary documented in this encounter Care Teams Television Repairman Relationship Specialty Start Date End Date Julio Gutierrez DO [address] [place] [address] PCP - General Adjunct Mathematics Instructor 02/09/11 documented as of this encounter
--- OUTSIDE RECORDS SUMMARY | 2025-01-15 13:42 | XMS_ITS | Encounter Summary ---
Author Organization [facility] Address [address] [place] [address] Care Team Providers Care Senior Consulting Manager Name Role Phone Julio Gutierrez DO Primary Care Provider [phone] Encounter Details Date Type Department Care Team (Latest Contact Info) Description 03/08/[address] [facility] [address] [place] [address] Lavonne Paez MD [address] [place] [address] Radial styloid tenosynovitis (Primary Dx) Social History Tobacco Use Types Packs/Day Years Used Date Smoking Tobacco: Never Assessed Comments Unknown Sex and Gender Information Value Date Recorded Sex Assigned at Not on file Legal Sex Female 3:22 AM SENIOR STAFF SPECIALIZED EMPLOYMENT Gender Identity Not on file Sexual Orientation Not on file documented as of this encounter Plan of Treatment Not on file documented as of this encounter Visit Diagnoses Diagnosis Radial styloid tenosynovitis- Primary documented in this encounter Care Teams Senior Consulting Manager Relationship Specialty Start Date End Date Julio Gutierrez DO [address] [place] [address] PCP - General Repairer Handtools 02/09/11 documented as of this encounter
--- OUTSIDE RECORDS SUMMARY | 2025-01-15 13:42 | XMS_ITS | Encounter Summary ---
Author Organization [facility] Address [address]alezn: [place] [address] Care Team Providers Care Library Media Technician Name Role Phone Julio Gutierrez DO Primary Care Provider [phone] Encounter Details Date Type Department Care Team (Late st Contact Info) Description 05/03/1999 Outpatient Historical Renard Lorenz MD NO ADDRESS ON FILE Social History Tobacco Use Types Packs/Day Years Used Date Smoking Tobacco: Never Assessed Comments Unknown Sex and Gender Information Value Date Recorded Sex Assigned at Not on file Legal Sex Female 3:22 AM SHADE CLASSIFIER Gender Identity Not on file Sexual Orientation Not on file documented as of this encounter Plan of Treatment Not on file documented as of this encounter Visit Diagnoses Not on filedocumented in this encounter Care Teams Library Media Technician Relationship Specialty Start Date End Date Julio Gutierrez DO [address] [place] [address] PCP - General Brick Tender 02/09/11 documented as of this encounter
--- OUTSIDE RECORDS SUMMARY | 2025-01-15 13:42 | XMS_ITS | Encounter Summary ---
Author Organization [facility] Address [address] [place] [address] Care Team Providers Care Motor Block Mechanic Name Role Phone Julio Gutierrez DO Primary Care Provider [phone] Encounter Details Date Type Department Care Team (Late st Contact Info) Description 12/15/1998 Outpatient Historical [address] [phone] Social History Tobacco Use Types Packs/Day Years Used Date Smoking Tobacco: Never Assessed Comments Unknown Sex and Gender Information Value Date Recorded Sex Assigned at Not on file Legal Sex Female 3:22 AM LAY OUT HELPER Gender Identity Not on file Sexual Orientation Not on file documented as of this encounter Plan of Treatment Not on file documented as of this encounter Visit Diagnoses Not on filedocumented in this encounter Care Teams Motor Block Mechanic Relationship Specialty Start Date End Date Julio Gutierrez DO [address] [place] [address] PCP - General Calender Let Off Helper 02/09/11 documented as of this encounter
--- OUTSIDE RECORDS SUMMARY | 2025-01-15 13:42 | XMS_ITS | Encounter Summary ---
Author Organization [facility] Address [address] Gonzalezn: [place] [address] Care Team Providers Care Coding Validator Name Role Phone Julio Gutierrez DO Primary Care Provider [phone] Encounter Details Date Type Department Care Team (Late st Contact Info) Description 04/16/2000 Outpatient Historical Dallas Noble MD [address] [place] [address] Social History Tobacco Use Types Packs/Day Years Used Date Smoking Tobacco: Never Assessed Comments Unknown Sex and Gender Information Value Date Recorded Sex Assigned at Not on file Legal Sex Female 3:22 AM MARKET RISK SPECIALIST Gender Identity Not on file Sexual Orientation Not on file documented as of this encounter Plan of Treatment Not on file documented as of this encounter Visit Diagnoses Not on filedocumented in this encounter Care Teams Coding Validator Relationship Specialty Start Date End Date Julio Gutierrez DO [address] [place] [address] PCP - General Automotive Service Professional 02/09/11 documented as of this encounter
--- OUTSIDE RECORDS SUMMARY | 2025-01-15 13:42 | XMS_ITS | Encounter Summary ---
Author Organization [facility] Address [address] [place] [address] Care Team Providers Care Educational Manager Name Role Phone Julio Gutierrez DO Primary Care Provider [phone] Encounter Details Date Type Department Care Team (Latest Contact Info) Description 10/02/1997 Outpatient Historical [facility] Gen Spec Surg [address] [place] [address] Srinivas Beck MD NO ADDRESS ON FILE Follow-up examination following surgery (Primary Dx); Chronic cholecystitis Social History Tobacco Use Types Packs/Day Years Used Date Smoking Tobacco: Never Assessed Comments Unknown Sex and Gender Information Value Date Recorded Sex Assigned at Not on file Legal Sex Female 3:22 AM JEWELRY ENAMELER Gender Identity Not on file Sexual Orientation Not on file documented as of this encounter Plan of Treatment Not on file documented as of this encounter Visit Diagnoses Diagnosis Follow-up examination following surgery- Primary Chronic cholecystitis documented in this encounter Care Teams Educational Manager Relationship Specialty Start Date End Date Julio Gutierrez DO [address] [place] [address] PCP - General Emergency Medical Dispatcher 02/09/11 documented as of this encounter
--- OUTSIDE RECORDS SUMMARY | 2025-01-15 13:42 | XMS_ITS | Encounter Summary ---
Author Organization [facility] Address [address] [place] [address] Care Team Providers Care Screen Printer Helper Name Role Phone Julio Gutierrez DO Primary Care Provider [phone] Encounter Details Date Type Department Care Team (Latest Contact Info) Description 12/20/1999 Outpatient Historical [address] [phone] Angel Clark DO NO ADDRESS ON FILE Pain in limb (Primary Dx) Social History Tobacco Use Types Packs/Day Years Used Date Smoking Tobacco: Never Assessed Comments Unknown Sex and Gender Information Value Date Recorded Sex Assigned at Not on file Legal Sex Female 3:22 AM CUSTOMER SERVICE PROFESSIONAL Gender Identity Not on file Sexual Orientation Not on file documented as of this encounter Plan of Treatment Not on file documented as of this encounter Visit Diagnoses Diagnosis Pain in limb- Primary Pain in soft tissues of limb documented in this encounter Care Teams Screen Printer Helper Relationship Specialty Start Date End Date Julio Gutierrez DO [address] [place] [address] PCP - General Dairy Equipment Installer 02/09/11 documented as of this encounter
--- OUTSIDE RECORDS SUMMARY | 2025-01-15 13:42 | XMS_ITS | Encounter Summary ---
Author Organization [facility] Address [address] [place] [address] Care Team Providers Care Meeting Coordinator Name Role Phone Julio Gutierrez DO Primary Care Provider [phone] Encounter Details Date Type Department Care Team (Latest Contact Info) Description 09/11/1997 Outpatient Historical [facility] [address] [place] [address] Lavonne Paez MD [address] [place] [phone] Abdominal pain, unspecified site (Primary Dx); Abdominal pain, right upper quadrant Social History Tobacco Use Types Packs/Day Years Used Date Smoking Tobacco: Never Assessed Comments Unknown Sex and Gender Information Value Date Recorded Sex Assigned at Not on file Legal Sex Female 3:22 AM DIRECTOR OF ACQUISITIONS Gender Identity Not on file Sexual Orientation Not on file documented as of this encounter Plan of Treatment Not on file documented as of this encounter Visit Diagnoses Diagnosis Abdominal pain, unspecified site- Primary Abdominal pain, right upper quadrant documented in this encounter Care Teams Meeting Coordinator Relationship Specialty Start Date End Date Julio Gutierrez DO [address] [place] [address] PCP - General Computer Systems Support Specialist 02/09/11 documented as of this encounter
--- OUTSIDE RECORDS SUMMARY | 2025-01-15 13:42 | XMS_ITS | Encounter Summary ---
Author Organization [facility] Address [address] [place] [address] Care Team Providers Care Floor Sanding Machine Operator Name Role Phone Julio Gutierrez DO Primary Care Provider [phone] Encounter Details Date Type Department Care Team (Latest Contact Info) Description 09/17/1997 Outpatient Historical [facility] [address] [place] [address] Steve Paez MD [address] [place] [address] Unspecified disorder of gallbladder (Primary Dx) Social History Tobacco Use Types Packs/Day Years Used Date Smoking Tobacco: Never Assessed Comments Unknown Sex and Gender Information Value Date Recorded Sex Assigned at Not on file Legal Sex Female 3:22 AM CASH CONTROLLER Gender Identity Not on file Sexual Orientation Not on file documented as of this encounter Plan of Treatment Not on file documented as of this encounter Visit Diagnoses Diagnosis Unspecified disorder of gallbladder- Primary documented in this encounter Care Teams Floor Sanding Machine Operator Relationship Specialty Start Date End Date Julio Gutierrez DO [address] [place] [address] PCP - General Business Banking Relationship Manager 02/09/11 documented as of this encounter
--- OUTSIDE RECORDS SUMMARY | 2025-01-15 13:42 | XMS_ITS | Encounter Summary ---
Author Organization [facility] Address [address] Attn: [place] [address] Care Team Providers Care Resin Mixer Name Role Phone Julio Gutierrez DO Primary Care Provider [phone] Encounter Details Date Type Department Care Team (Late st Contact Info) Description 12/20/1999 Outpatient Historical Angel Clark DO NO ADDRESS ON FILE Social History Tobacco Use Types Packs/Day Years Used Date Smoking Tobacco: Never Assessed Comments Unknown Sex and Gender Information Value Date Recorded Sex Assigned at Not on file Legal Sex Female 3:22 AM WWE WRESTLER Gender Identity Not on file Sexual Orientation Not on file documented as of this encounter Plan of Treatment Not on file documented as of this encounter Visit Diagnoses Not on filedocumented in this encounter Care Teams Resin Mixer Relationship Specialty Start Date End Date Julio Gutierrez DO [address] [place] [address] PCP - General Board Member 02/09/11 documented as of this encounter
--- OUTSIDE RECORDS SUMMARY | 2025-01-15 13:42 | XMS_ITS | Encounter Summary ---
Author Organization [facility] Address [address] [place] [address] Care Team Providers Care Marketing Proposal Coordinator Name Role Phone Julio Gutierrez DO Primary Care Provider [phone] Encounter Details Date Type Department Care Team (Latest Contact Info) Description 09/25/1997 Outpatient Historical [facility] Gen Spec Surg [place] [address] [place] [address] Steve Paez MD [address] [place] [address] Follow-up examination following surgery (Primary Dx); Chronic cholecystitis Social History Tobacco Use Types Packs/Day Years Used Date Smoking Tobacco: Never Assessed Comments Unknown Sex and Gender Information Value Date Recorded Sex Assigned at Not on file Legal Sex Female 3:22 AM TOBACCO HANGER Gender Identity Not on file Sexual Orientation Not on file documented as of this encounter Plan of Treatment Not on file documented as of this encounter Visit Diagnoses Diagnosis Follow-up examination following surgery- Primary Chronic cholecystitis documented in this encounter Care Teams Marketing Proposal Coordinator Relationship Specialty Start Date End Date Julio Gutierrez DO [address] [place] [address] PCP - General Engineer Technical Staff 02/09/11 documented as of this encounter
--- OUTSIDE RECORDS SUMMARY | 2025-01-15 13:42 | XMS_ITS | Encounter Summary ---
Author Organization [facility] Address [address] [place] [address] Care Team Providers Care Geographic Analyst Name Role Phone Julio Gutierrez DO Primary Care Provider [phone] Encounter Details Date Type Department Care Team (Late st Contact Info) Description 11/15/1998 Outpatient Historical [address] [phone] Social History Tobacco Use Types Packs/Day Years Used Date Smoking Tobacco: Never Assessed Comments Unknown Sex and Gender Information Value Date Recorded Sex Assigned at Not on file Legal Sex Female 3:22 AM ORTHOTIST/PROSTHETIST Gender Identity Not on file Sexual Orientation Not on file documented as of this encounter Plan of Treatment Not on file documented as of this encounter Visit Diagnoses Not on filedocumented in this encounter Care Teams Geographic Analyst Relationship Specialty Start Date End Date Julio Gutierrez DO [address] [place] [address] PCP - General Full Stack Software Developer 02/09/11 documented as of this encounter
--- OUTSIDE RECORDS SUMMARY | 2025-01-15 13:42 | XMS_ITS | Encounter Summary ---
Author Organization [facility] Address [address] [place] [address] Care Team Providers Care Assembly Machine Offbearer Name Role Phone Julio Gutierrez DO Primary Care Provider [phone] Encounter Details Date Type Department Care Team (Latest Contact Info) Description 03/22/2000 Outpatient Historical [facility] Medicine[address] [phone] Angel Clark DO NO ADDRESS ON FILE Nonallopathic lesion of thoracic region, not elsewhere classified (Primary Dx) Social History Tobacco Use Types Packs/Day Years Used Date Smoking Tobacco: Never Assessed Comments Unknown Sex and Gender Information Value Date Recorded Sex Assigned at Not on file Legal Sex Female 3:22 AM RECORDS MANAGEMENT ASSOCIATE Gender Identity Not on file Sexual Orientation Not on file documented as of this encounter Plan of Treatment Not on file documented as of this encounter Visit Diagnoses Diagnosis Nonallopathic lesion of thoracic region, not elsewhere classified- Primary documented in this encounter Care Teams Assembly Machine Offbearer Relationship Specialty Start Date End Date Julio Gutierrez DO [address] [place] [address] PCP - General Mascara Molder 02/09/11 documented as of this encounter
--- OUTSIDE RECORDS SUMMARY | 2025-01-15 13:42 | XMS_ITS | Encounter Summary ---
Author Organization [facility] Address [address] [place] [address] Care Team Providers Care Clinical Sciences Professor Name Role Phone Julio Gutierrez DO Primary Care Provider [phone] Encounter Details Date Type Department Care Team (Late st Contact Info) Description 11/29/1998 Outpatient Historical [address] [phone] Social History Tobacco Use Types Packs/Day Years Used Date Smoking Tobacco: Never Assessed Comments Unknown Sex and Gender Information Value Date Recorded Sex Assigned at Not on file Legal Sex Female 3:22 AM MANUAL QA TESTER Gender Identity Not on file Sexual Orientation Not on file documented as of this encounter Plan of Treatment Not on file documented as of this encounter Visit Diagnoses Not on filedocumented in this encounter Care Teams Clinical Sciences Professor Relationship Specialty Start Date End Date Julio Gutierrez DO [address] [place] [address] PCP - General Cnc Machine Operator 02/09/11 documented as of this encounter
--- OUTSIDE RECORDS SUMMARY | 2025-01-15 13:42 | XMS_ITS | Encounter Summary ---
Author Organization [facility] Address [address] [place] [address] Care Team Providers Care Lime Plant Operator Name Role Phone Julio Gutierrez DO Primary Care Provider [phone] Encounter Details Date Type Department Care Team (Late st Contact Info) Description 04/12/2000 Outpatient Historical [facility] Gen Spec Surg [address] [address] Dallas Noble MD [address] [place] [address] Incisional hernia (Primary Dx) Social History Tobacco Use Types Packs/Day Years Used Date Smoking Tobacco: Never Assessed Comments Unknown Sex and Gender Information Value Date Recorded Sex Assigned at Not on file Legal Sex Female 3:22 AM BARREL BRANDER Gender Identity Not on file Sexual Orientation Not on file documented as of this encounter Plan of Treatment Not on file documented as of this encounter Visit Diagnoses Diagnosis Incisional hernia- Primary Incisional hernia without mention of obstruction or gangrene documented in this encounter Care Teams Lime Plant Operator Relationship Specialty Start Date End Date Julio Gutierrez DO [address] [place] [address] PCP - General Plate And Frame Filter Operator 02/09/11 documented as of this encounter
--- OUTSIDE RECORDS SUMMARY | 2025-01-15 13:42 | XMS_ITS | Encounter Summary ---
Author Organization [facility] Address [address] [place] [address] Care Team Providers Care Publisher Assistant Name Role Phone Julio Gutierrez DO Primary Care Provider [phone] Encounter Details Date Type Department Care Team (Latest Contact Info) Description 04/02/[address] [phone] Angel Clark DO NO ADDRESS ON FILE Acute pharyngitis (Primary Dx); Pain in joint, shoulder region; Chest pain, unspecified; Esophageal reflux Social History Tobacco Use Types Packs/Day Years Used Date Smoking Tobacco: Never Assessed Comments Unknown Sex and Gender Information Value Date Recorded Sex Assigned at Not on file Legal Sex Female 3:22 AM SIGN WIRER Gender Identity Not on file Sexual Orientation Not on file documented as of this encounter Plan of Treatment Not on file documented as of this encounter Visit Diagnoses Diagnosis Acute pharyngitis- Primary Pain in joint, shoulder region Chest pain, unspecified Esophageal reflux documented in this encounter Care Teams Publisher Assistant Relationship Specialty Start Date End Date Julio Gutierrez DO [address] [place] [address] PCP - General Learning Support Resource Room Teacher 02/09/11 documented as of this encounter
--- OUTSIDE RECORDS SUMMARY | 2025-01-15 13:42 | XMS_ITS | Encounter Summary ---
Author Organization [facility] Address [address] [place] [address] Care Team Providers Care Housing Development Specialist Name Role Phone Julio Gutierrez DO Primary Care Provider [phone] Encounter Details Date Type Department Care Team (Latest Contact Info) Description 05/21/1998 Outpatient Historical [facility] [address] [place] [phone] Lavonne Paez MD [address] [place] [address] Lumbago (Primary Dx); Abdominal pain, unspecified site Social History Tobacco Use Types Packs/Day Years Used Date Smoking Tobacco: Never Assessed Comments Unknown Sex and Gender Information Value Date Recorded Sex Assigned at Not on file Legal Sex Female 3:22 AM PIN BALL MACHINE MECHANIC Gender Identity Not on file Sexual Orientation Not on file documented as of this encounter Plan of Treatment Not on file documented as of this encounter Visit Diagnoses Diagnosis Lumbago- Primary Abdominal pain, unspecified site documented in this encounter Care Teams Housing Development Specialist Relationship Specialty Start Date End Date Julio Gutierrez DO [address] [place] [address] PCP - General Graphics Production Specialist 02/09/11 documented as of this encounter
--- OUTSIDE RECORDS SUMMARY | 2025-01-15 13:42 | XMS_ITS | Encounter Summary ---
Author Organization [facility] Address [address] [place] [address] Care Team Providers Care Lap Runner Name Role Phone Julio Gutierrez DO Primary Care Provider [phone] Encounter Details Date Type Department Care Team (Latest Contact Info) Description 12/26/1999 Outpatient Historical [facility] Dom Shah, MARÍA NO ADDRESS ON FILE Pain in limb (Primary Dx); Plantar fibromatosis; Congenital pes planus; Calcaneal spur Social History Tobacco Use Types Packs/Day Years Used Date Smoking Tobacco: Never Assessed Comments Unknown Sex and Gender Information Value Date Recorded Sex Assigned at Not on file Legal Sex Female 3:22 AM SETTER COLD ROLLING MACHINE Gender Identity Not on file Sexual Orientation Not on file documented as of this encounter Plan of Treatment Not on file documented as of this encounter Visit Diagnoses Diagnosis Pain in limb- Primary Pain in soft tissues of limb 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
--- OUTSIDE RECORDS SUMMARY | 2025-01-15 13:42 | XMS_ITS | Encounter Summary ---
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
--- OUTSIDE RECORDS SUMMARY | 2025-01-15 13:42 | XMS_ITS | Encounter Summary ---
Author Organization [facility] Address [address] [place] [address] Care Team Providers Care Director General Name Role Phone Julio Gutierrez DO Primary Care Provider Encounter Details Date Type Department Care Team (Latest Contact Info) Description 08/27/1998 Outpatient Historical [facility] [address] [place] [phone] Lavonne Paez MD [address] [place] [phone] Pain in joint, forearm (Primary Dx) Social History Tobacco Use Types Packs/Day Years Used Date Smoking Tobacco: Never Assessed Comments Unknown Sex and Gender Information Value Date Recorded Sex Assigned at Not on file Legal Sex Female 3:[address] SUPERVISOR Gender Identity Not on file Sexual Orientation Not on file documented as of this encounter Plan of Treatment Not on file documented as of this encounter Visit Diagnoses Diagnosis Pain in joint, forearm- Primary documented in this encounter Care Teams Director General Relationship Specialty Start Date End Date Julio Gutierrez DO [address] [place] [address] PCP - General Director Of Land 02/09/11 documented as of this encounter
--- OUTSIDE RECORDS SUMMARY | 2025-01-15 13:42 | XMS_ITS | Encounter Summary ---
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
--- OUTSIDE RECORDS SUMMARY | 2025-01-15 13:42 | XMS_ITS | Encounter Summary ---
Author Organization [facility] Address [address] [place] [address] Care Team Providers Care Railway Signalling Engineer Name Role Phone Julio Gutierrez DO Primary Care Provider [phone] Encounter Details Date Type Department Care Team (Latest Contact Info) Description 08/18/1998 [facility] [address] [place] [phone] Angel Gabriel MD [address] [address] Pain in limb (Primary Dx) Social History Tobacco Use Types Packs/Day Years Used Date Smoking Tobacco: Never Assessed Comments Unknown Sex and Gender Information Value Date Recorded Sex Assigned at Not on file 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
--- NOTE | 2025-01-15 13:58 | CTR_ITS ---
PROCEDURE INFORMATION: Exam: CTA Chest With Contrast Exam date and time: 01/15/2025 3:24 PM Age: 69 years old Clinical indication: Dyspnea; Prior surgery; Surgery date: 6+ months; Surgery type: Open heart, gb; Additional info: Trauma dyspnea TECHNIQUE: Imaging protocol: Computed tomographic angiography of the chest with contrast. Exam focused on the arteries. 3D rendering (Not supervised by radiologist): MIP and/or 3D reconstructed images were created by the technologist. Radiation optimization: All CT scans at this facility use at least one of these dose optimization techniques: automated exposure control; mA and/or kV adjustment per patient size (includes targeted exams where dose is matched to clinical indication); or iterative reconstruction. Contrast material: OMNIPAQUE 350; Contrast volume: 70 ml; Contrast route: INTRAVENOUS (IV); COMPARISON: CR XR chest 1V portable [id number] 01/15/2025 1:59 PM RADIATION DOSE METRICS: Total DLP (mGy-cm): 186.44 FINDINGS: Pulmonary arteries: Tiny filling defect within a right lower lobe segmental pulmonary artery (for example series 6, image 267). Aorta: Moderate calcifications of the thoracic aorta. The thoracic aorta is nonaneurysmal. Lungs: Mucous plugging within the right mainstem bronchus extending into right middle and lower lobe bronchi. Patchy consolidation in the right middle and right lower lobes. Mild central bronchial wall thickening. Thin-walled cyst in the left upper lobe. Pleural spaces: Trace right pleural effusion. Heart: Mild cardiomegaly. Heart RV/LV ratio: 0.62. Lymph nodes: Unremarkable. No enlarged lymph nodes. Kidneys: Bilateral renal cysts partially imaged. Nonobstructing bilateral renal calculi measuring up to 2 mm on the right and 4 mm on the left. Bones/joints: Post median sternotomy and CABG. Degenerative changes of the thoracic spine. Old bilateral lateral rib fracture deformities. No definite acute fracture. Soft tissues: Unremarkable. CT/CT angio chest PE protcl [id number] IMPRESSION: 1. Tiny filling defect in a right lower lobe segmental pulmonary artery is favored to be artifactual. A small pulmonary embolism is not entirely excluded. Otherwise no evidence of pulmonary emboli. 2. Mucous plugging in the right mainstem bronchus extending into right middle and right lower lobe bronchi. Patchy areas of consolidation in the right middle and lower lobes likely represent postobstructive atelectasis, though superimposed infection is not excluded. 3. Mild cardiomegaly. 4. Nonobstructing bilateral nephrolithiasis. 5. Post median sternotomy and CABG. COMMENTS: Consistent with the [place] [employer]'s Incidental Findings Committee white paper (J Am Jenni Radiol 2018): Any incidental renal lesion less than 1 cm or classified as too small to characterize, or any incidental cystic renal lesion characterized as simple-appearing, is likely benign. No follow-up imaging is recommended for these lesions per consensus recommendations based on imaging criteria.
--- NOTE | 2025-01-15 13:58 | XR_ITS ---
WS: [id number] Portable AP upright chest, 01/15/2025 Clinical Data: dyspnea/cough Comparison: Portable chest, 12/14/2016 Findings: There is a patchy right lower lobe opacity which could represent atelectasis, effusion and/or pneumonia. No nodules or masses are seen. The heart is enlarged. The pulmonary vascularity is not increased. No pneumothorax is seen. The aortic arch shows calcification. Midline sternotomy sutures and mediastinal clips are present. There are monitor leads on the chest and abdominal wall. XR/XR chest 1V portable [id number] Impression: 1. Patchy right lower lobe opacity which could represent atelectasis, effusion and/or pneumonia. 2. Cardiomegaly and atherosclerosis.
[2025-01-15 14:06] LABS: ABG PCO2 44.0 mmHg (35-45); ABG PH Result 7.43 (7.35-7.45); Alveolar-Arterial Oxygen Gradi 5.1 mmHg (5-10); Arterial Blood Gas Hematocrit 39.5 % (37-47); Blood Gas Allen Test Pos; Blood Gas LPM 6.0 %; Blood Gas Operator Identificat CAK; Blood Gas Sample Site Radial, left; Blood Gas Sample Type Arterial; Carboxyhemoglobin 3.9 %THgb (0.4-20.1); Glucose Level-ABG 84.0 mg/dL (70-115); HCO3 ABG 29.3 mmol/L (22-26); Ionized Calcium Level - ABG 1.2 mmol/L (1.1-1.4); Methemoglobin 0.3 % (0.4-1.5); Oxygen Saturation ABG 90.3; PO2 ABG 56.6 mmHg (80.0-100.0); Potassium Level - ABG 3.6 mmol/L (3.5-5.0); Sodium Level - ABG 130.0 mmol/L (131-143)
[2025-01-15 14:08] LABS: Hematocrit 39.4 % (36-47); Hemoglobin 13.00 g/dL (11.27-16.99); Mean Corpuscular HGB Conc 33.0 g/dL (30-55); Mean Corpuscular Hemoglobin 31.3 pg (27-33); Mean Corpuscular Volume 94.7 fl (85-98); Nucleated Red Blood Cells % 0 %; Platelet Count 373 10^3/cmm (157-399); Red Blood Count 4.16 10^6/uL (3.85-5.65); White Blood Count 9.31 10^3/uL (3.29-11.43)
[2025-01-15 14:10] VITALS: PULSE 75; RESP 18; O2SAT 90
--- NOTE | 2025-01-15 14:10 | ED_ITS ---
HPI - Fall 2 General: Chief Complaint: Fall Stated Complaint: chest and abd pain due to fall Time Seen by Provider: 01/15/25 13:58 History of Present Illness: 69-year-old female presents emergency ro om 4 days after a fall she tripped and fell in a hole she hit a board across her chest approximately at the nipple while when she fell patient. She has a history of coronary artery disease previous bypass. She is not on any oral anticoagulants does take aspirin daily she has not had any hemoptysis. She not strike her head or lose consciousness. Associated symptoms-after fall: Reports chest pain; Denies abdominal pain or neck pain Related Data Home Medications ?Medication ?Instructions ?Recorded ?Confirmed acetaminophen 300 mg-codeine 60 mg 1 tab PO Q8H PRN Pa in 01/13/22 01/15/25 tablet amlodipine 5 mg tablet 5 mg PO DAILY 01/13/2201/15 aspirin 81 mg tablet,delayed 81 mg PO DAILY 01/13/22 0 01/15/25 release (Adult Aspirin Regimen) atorvastatin 40 mg tablet 40 mg PO QPM 01/13/22 cyclobenzaprine 10 mg tablet 10 mg PO TID PRN Spasms 0 01/13/22 01/15/25 escitalopram oxalate 20 mg tablet 20 mg PO DAILY 01/1301/15/25 magnesium 250 mg tablet 250 mg PO DAILY 01/13/22 suvorexant 20 mg tablet (Belsomra) 20 mg PO DAILY 01/0201/15/25 alprazolam 0.25 mg tablet 0.25 mg PO TID PRN Anxiety 0 01/15/25 01/15/25 cholecalciferol (vitamin D3) 50 50 mcg PO DAILY 01/15/25 mcg (2,000 unit) tablet (Vitamin D3) enalapril maleate 20 mg tablet 20 mg PO BID 01/15/25 0 01/15/25 isosorbide mononitrate 30 mg 30 mg PO DAILY 01/15/25 0 01/15/25 tablet,extended release 24 hr metoprolol succinate 50 mg 50 mg PO BID 01/15/2501/15 tablet,extended release 24 hr omeprazole 40 mg capsule,delayed 40 mg PO DAILY 08/14/ 25 08/14/25 release vit C 250 mg-vit E 90 mg-zinc 40 1 tab PO DAILY 01/15/25 mg-copper 1 [id number] capsule (PreserVision AREDS-2) vitamin B complex 1 tab PO DAILY 01/15/2501/02 Previous Rx's ?Medication ?Instructions ?Recorded albuterol sulfate 90 mcg/actuation 2 inh inhalation Q4 H PRN shortness 01/15/25 aerosol inhaler of breath or wheezing #18 gr ams hydrocodone 5 mg-acetaminophen 325 1 tab PO Q6H PRN pa in #12 tabs 01/15/25 mg tablet Allergies Allergy/AdvReac Type Severity Reaction Status Date / Time Penicillins Allergy Intermediate Unknown Verified 01/15/25 13:42 Review of Systems 2 Const: Denies: fever(s) or chills Card: Reports: chest pain Resp: Denies: dyspnea GI: Denies: abdominal pain : Denies: dysuria, urinary frequency or urinary urgency Musc: Denies: neck pain or back pain Skin/Breast: Denies: rash PFSH ED 2 PFSH: Social History Smoking and tobacco/nicotine status: current every day tobacco/nicotine user Physical Exam 2 Const: COMMON NORMALS: no acute distress GENERAL APPEARANCE: cooperative and comfortable ORIENTATION/CONSCIOUSNESS: Yes awake, Yes oriented to person, Yes oriented to place and Yes oriented to time HENMT: COMMON NORMALS: normocephalic, atraumatic and hearing grossly normal bilaterally HEAD & SCALP: normocephalic and atraumatic Chest: OTHER: Chest pain with palpation across the anterior chest wall Resp: COMMON NORMALS: normal respiratory effort, No retractions and No use of accessory muscles AUSCULTATION: wheezes Cardio: COMMON NORMALS: regular rate, regular rhythm and No murmurs present (Cardio) RATE: regular rate RHYTHM: regular rhythm GI: COMMON NORMALS: Soft to palpation and No hepatosplenomegaly present A USCULTATION: Yes normoactive bowel sounds PALPATION: Yes Soft to palpation, No Tenderness to palpation present (GI), No Guarding due to palpation present (GI) and Yes No hepatosplenomegaly present Extremity: COMMON NORMALS: normal to inspection, capillary refill normal, no clubbing, cyanosis or edema, no calf tenderness and no pedal edema Neuro: SENSORIUM/ORIENTATION: Yes oriented to person, Yes oriented to place and Yes oriented to time Skin: COMMON NORMALS: no rashes or lesions noted GENERAL SKIN EXAM: no rashes or lesions noted Course 2 Vital Signs: Vital signs: Vital Signs Temperature 97.9 F 01/15/25 13:32 Pulse Rate 77 01/15/25 18:05 Respiratory Rate 18 01/15/25 14:10 Blood Pressure 125/68 01/15/25 18:05 Pulse Oximetry 91 01/15/25 18:05 Oxygen Delivery Me thod Nasal Cannula 01/15/25 14:10 Oxygen Flow Rate 6 01/15/25 14:10 MDM - Fall Medical Decision Making CT shows mucous plugging with pneumonia. Will start on oral antibiotics. Initially required oxygen. No longer requiring oxygen. Pain reproducible with palpation. Discharge patient home on oral antibiotics Lab Data 01/15/25 13:54 01/15/25 13:54 Radiology Impressions Chest CTA 01/15/25 13:58 IMPRESSION: 1. Tiny filling defect in a right lower lobe segmental pulmonary artery is favored to be artifactual. A small pulmonary embolism is not entirely excluded. Otherwise no evidence of pulmonary emboli. 2. Mucous plugging in the right mainstem bronchus extending into right middle and right lower lobe bronchi. Patchy areas of consolidation in the right middle and lower lobes likely represent postobstructive atelectasis, though superimposed infection is not excluded. 3. Mild cardiomegaly. 4. Nonobstructing bilateral nephrolithiasis. 5. Post median sternotomy and CABG. COMMENTS: Consistent with the [employer] [place] [employer]'s Incidental Findings Committee white paper (J Am Jenni Radiol 2018): Any incidental renal lesion less than 1 cm or classified as too small to characterize, or any incidental cystic renal lesion characterized as simple-appearing, is likely benign. No follow-up imaging is recommended for these lesions per consensus recommendations based on imaging criteria. Chest X-Ray 01/15/25 13:58 Impression: 1. Patchy right lower lobe opacity which could represent atelectasis, effusion and/or pneumonia. 2. Cardiomegaly and atherosclerosis. Laboratory Results WBC 9.31 10^3/uL (3.29-11.43) 01/15/25 13:54 RBC 4.16 10^6/uL (3.85-5.65) 01/15/25 13:54 Hgb 13.00 g/dL (11.27-16.99) 01/15/25 13:54 Hct 39.4 % (36-47) 01/15/25 13:54 MCV 94.7 fl (85-98) 01/15/25 13:54 MCH 31.3 pg (27-33) 01/15/25 13:54 MCHC 33.0 g/dL (30-55) 01/15/25 13:54 RDW 13.6 % (12.1-15.1) 01/15/25 13:54 Plt Count 373 10^3/cmm (157-399) 01/15/25 13:54 MPV 8.9 fL (7.4-10.4) 01/15/25 13:54 Neut % (Auto) 57.1 % 01/15/25 13:54 Lymph % (Auto) 26.3 % 01/15/25 13:54 Lea % (Auto) 14.1 % 01/15/25 13:54 Eos % (Auto) 1.8 % 01/15/25 13:54 Baso % (Auto) 0.4 % 01/15/25 13:54 Neut # (Auto) 5.31 10^3/uL (1.8-7.7) 01/15/25 13:54 Lymph # (Auto) 2.5 10^3/uL (0.8-4.8) 01/15/25 13:54 Lea # (Auto) 1.3 10^3/uL (0.2-0.9) H 01/15/25 13:54 Eos # (Auto) 0.2 10^3/uL (0.0-0.8) 01/15/25 13:54 Baso # (Auto) 0.0 10^3/uL (0.0-0.1) 01/15/25 13:54 Nucleated RBC % (auto) 0 % 01/15/25 13:54 Nucleated RBCs # 0.0 /100WBC 01/15/25 13:54 Specimen Type Arterial 01/15/25 13:55 Sample Site Radial, left 01/15/25 13:55 ABG pH 7.43 (7.35-7.45) 01/15/25 13:55 ABG pCO2 44.0 mmHg (35-45) 01/15/25 13:55 ABG pO2 56.6 mmHg (80.0-100.0) L 01/15/25 13:55 ABG HCO3 29.3 mmol/L (22-26) H 01/15/25 13:55 ABG O2 Saturation 90.3 01/15/25 13:55 ABG Base Excess 4.3 mmol/L (-2.0-2.0) H 01/15/25 13:55 Tre Test Pos 01/15/25 13:55 A-a O2 Gradient 5.1 mmHg (5-10) 01/15/25 13:55 Hematocrit 39.5 % (37-47) 01/15/25 13:55 Hgb O2 Saturation 86.6 % (95-100) L 01/15/25 13:55 Carboxyhemoglobin 3.9 %THgb (0.4-20.1) 01/15/25 13:55 Methemoglobin 0.3 % (0.4-1.5) L 01/15/25 13:55 Total Hemoglobin 12.9 g/dL (12-16) 01/15/25 13:55 Sodium 130.0 mmol/L (131-143) L 01/15/25 13:55 Potassium 3.6 mmol/L (3.5-5.0) 01/15/25 13:55 Glucose 84.0 mg/dL (70-115) 01/15/25 13:55 Ionized Calcium 1.2 mmol/L (1.1-1.4) 01/15/25 13:55 O2 Delivery Device Nc 01/15/25 13:55 O2 Liters/Min 6.0 % 01/15/25 13:55 Database Security Expert ID Cak 01/15/25 13:55 Sodium 132 mmol/L (136-145) L 01/15/25 13:54 Potassium 3.7 mmol/L (3.5-5.1) 01/15/25 13:54 Chloride 92 mmol/L (98-107) L 01/15/25 13:54 Carbon Dioxide 29 mmol/L (22-29) 01/15/25 13:54 Anion Gap 14.7 (5-19) 01/15/25 13:54 BUN 7 mg/dL (8-23) L 01/15/25 13:54 Creatinine 0.7 mg/dL (0.5-0.9) 01/15/25 13:54 GFR Calculation 83.0 mL/min (90-130) L 01/15/25 13:54 Glucose 87 mg/dL (65-115) 01/15/25 13:54 Calculated Osmolality 271 mOsm/kg (285-295) L 01/15/25 13:54 Calcium 8.8 mg/dL (8.5-10.5) 01/15/25 13:54 Total Bilirubin 0.8 mg/dL (0.15-1.2) 01/15/25 13:54 AST 15 U/L (0-32) 01/15/25 13:54 ALT 12 U/L (0-33) 01/15/25 13:54 Alkaline Phosphatase 100 U/L (35-105) 01/15/25 13:54 Total Protein 6.6 g/dL (6.6-8.7) 01/15/25 13:54 Albumin 3.8 g/dL (3.5-5.2) 01/15/25 13:54 Globulin 2.8 g/dL (1.3-4.6) 01/15/25 13:54 All radiology interpretation(s) finalized by discharge Discharge Plan Discharge Patient Disposition: Home Clinical Impression: Anterior chest wall pain, Pneumonia Condition: Stable Prescriptions: New hydrocodone-acetaminophen 5-325 mg tablet 1 tab PO Q6H PRN (Reason: pain) Qty: 12 0RF albuterol sulfate 90 mcg/actuation HFA aerosol inhaler 2 inh INHALATION Q4H PRN (Reason: shortness of breath or wheezing) Qty: 18 0RF No Action cyclobenzaprine 10 mg tablet 10 mg PO TID PRN (Reason: Spasms) amlodipine 5 mg tablet 5 mg PO DAILY atorvastatin 40 mg tablet 40 mg PO QPM escitalopram oxalate 20 mg tablet 20 mg PO DAILY acetaminophen-codeine 300-60 mg tablet 1 tab PO Q8H PRN (Reason: Pain) Belsomra 20 mg tablet 20 mg PO DAILY aspirin [Adult Aspirin Regimen] 81 mg tablet,delayed release (DR/EC) 81 mg PO DAILY magnesium 250 mg tablet 250 mg PO DAILY metoprolol succinate 50 mg tablet extended release 24 hr 50 mg PO BID omeprazole 40 mg capsule,delayed release(DR/EC) 40 mg PO DAILY alprazolam 0.25 mg tablet 0.25 mg PO TID PRN (Reason: Anxiety) vitamin B complex Tablet 1 tab PO DAILY cholecalciferol (vitamin D3) [Vitamin D3] 50 mcg (2,000 unit) Tablet 50 mcg PO DAILY PreserVision AREDS-2 250-90-40-1 mg Capsule 1 tab PO DAILY enalapril maleate 20 mg tablet 20 mg PO BID isosorbide mononitrate 30 mg tablet extended release 24 hr 30 mg PO DAILY Discharge Orders: Discharge ED (Routine); Ordered 01/15/25 Ordered By: Les Rosenbaum Referrals: Kat Smith [Primary Care Provider, Family Practice] Discharge Diet: Usual diet Discharge Activity: Resume usual activity Patient Instructions: Opioid Safety, Pain Management, Patient Portal & Cande Instructions Activity Restrictions/Additional Instructions: Thank you for choosing [facility] for your healthcare needs today. It is very important that you follow up as instructed or that you return to the Emergency Department should you have concerns or if your condition changes or worsens in any way. You are seen emergency room complaining of chest pain after hitting her chest after a fall. There is no sign of fracture or injury to the lungs. You were noted to have a small pneumonia for which we will start you on a oral antibiotic. You should follow-up with your primary care doctor. Give you albuterol to use as needed it is as well as hydrocodone for pain. Print Language: Bolivian Coding Level of Care Code ED Binder Cutter Hand for Ermias Alegre
[2025-01-15 14:13] VITALS: PULSE 77
--- NOTE | 2025-01-15 14:19 | ECG_ITS ---
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 Measurements Intervals [place] Rate: 73 P: 59 [place]: 144 QRS: 35 QRSD: 102 T: 82 QT: 414 QTc: 458 Interpretive Statements SINUS RHYTHM POSSIBLE LEFT ATRIAL ENLARGEMENT [-0.1mV P-WAVE IN V1/V2] MINIMAL ST DEPRESSION [0.025+ mV ST DEPRESSION] Compared to ECG 11/16/2015 15:45:01 No significant changes Electronically Signed On 01-24-2025 09:26:35 CDT by Vic Recinos M.D. [email or web address]
[2025-01-15 14:25] LABS: Alanine Aminotransferase 12 U/L (0-33); Albumin Level 3.8 g/dL (3.5-5.2); Alkaline Phosphatase 100 U/L (35-105); Anion Gap 14.7 (5-19); Aspartate Amino Transferase 15 U/L (0-32); Blood Urea Nitrogen 7 mg/dL (8-23); Calcium 8.8 mg/dL (8.5-10.5); Carbon Dioxide 29 mmol/L (22-29); Chloride 92 mmol/L (98-107); Creatinine Clr Calc Pharmacy 51.5695; Globulin 2.8 g/dL (1.3-4.6); Glucose 87 mg/dL (65-115); Osmolality Calculated 271 mOsm/kg (285-295); Potassium 3.7 mmol/L (3.5-5.1); Sodium 132 mmol/L (136-145); Total Protein 6.6 g/dL (6.6-8.7)
[2025-01-15] MEDS: methylPREDNISolone sod succ 125 mg/2 mL INJ IVP (14:45)
[2025-01-15] MEDS: ondansetron 2 mg/ML SDV 2 mL 4 MG IVP (14:46)
[2025-01-15] MEDS: morphine 4 mg/mL SDV 1 mL IVP (14:47)
[2025-01-15 14:49] VITALS: BP 164/85; PULSE 76; O2SAT 95
[2025-01-15] MEDS: iohexol 350 mg/mL 500 mL Btl (per mL) IV (15:35)
[2025-01-15 16:54] VITALS: BP 145/78; PULSE 75; O2SAT 93
[2025-01-15 18:05] VITALS: BP 125/68; PULSE 77; O2SAT 91
== END 2025-01-15 18:06 | disposition home or self-care (01) ==
PROVIDERS: Emergency Provider Family Medicine; PCP Nurse Practitioner Family
DX: R07.89 Other chest pain (principal); J18.9 Pneumonia, unspecified organism; Z79.82 Long term (current) use of aspirin; Z72.0 Tobacco use; W17.2XXA Fall into hole, initial encounter
CPT/HCPCS: 36600; 71045; 71275; 80051; 80053; 82330; 82805; 85025; 93005; 94640; 96374; 96375; 99285; J2270; J2405; J2919